=== PATIENT | female | born 1995 | race Caucasian/White ===

== ENCOUNTER 2017-10-03 06:39 | Inpatient (IN) ==
--- OUTSIDE RECORDS SUMMARY | 2017-10-03 05:04 | External Medical Summary | Referral Summary ---
:1995 Author Organization [facility] Address [address] [place] [address] [place] [address] Care Team Providers Name Role Phone Arnie Fernandez Primary Care Physician Encounter VC Date(s): 06/10/15 - 06/10/15 [facility] [place] [address]- Discharge Diagnosis: Epigastric pain Discharge Disposition: 01-Home or Self Care Attending Physician: Александр Solorio MD Admitting Physician: Александр Solorio MD Referring Physician: Arnie Fernandez DO Vital Signs Most recent to oldest [Reference Range]: 1 Temperature Tympanic [36.6-38.1 degC] 36.7 degC (06/10/15 2:45 PM) Peripheral Pulse Rate [60-100 bpm] 84 bpm (06/10/15 2:45 PM) Respiratory Rate [14-20 br/min] 16 br/min (06/10/15 2:45 PM) Blood Pressure [90-140/60-90 mmHg] 100/60 mmHg (06/10/15 2:45 PM) Problem List Condition Effective Dates Status Health Status Informant Heart defect(Confirmed)1 Active 1age 13 months ventricular septal defect repair. Allergies, Adverse Reactions, Alerts No Known Medication Allergies Medications ibuprofen 200 mg oral tablet 3 tabs, Oral, q6hr, as needed for pain, 0 Refill(s) Start Date: 08/04/14 Status: OrderedZoloft 100 mg oral tablet 200 mg 2 tabs, Oral, Daily, # 60 tabs, 1 Refill(s), Pharmacy: [id number], 2 tabs Oral Daily,x30 days Start Date: 10/16/15 Stop Date: 12/15/15 Status: Ordered Results No data available for this section Immunizations Vaccine Date Refusal Reason tetanus/diphth/pertuss (Tdap) adult/adol 06/19/09 human papillomavirus vaccine 02/16/11 human papillomavirus vaccine 02/15/10 human papillomavirus vaccine 06/19/09 varicella virus vaccine 06/19/09 Procedures Procedure Date Related Diagnosis Body Site ventricular septal defect repair1 1994 Tonsillectomy 1heart defect age 13 months. Social History Social History Type Response Smoking Status Never smoker Assessment and Plan Extracted from: Title: Office Visit Note Author: Александр Solorio MD Date: 06/10/15 Assessment/Plan Epigastric pain I've recommended Protonix 40 mg daily 2 weeks. Holden diet encouraged. If symptoms don't improve during that timeframe she should follow-up for further evaluation with Dr. augustin. Talked about considering evaluation of her gallbladder. I also mentioned to her that she had some premature contractions noted on her cardiac evaluation today. I think these are benign. She has no syncope or palpitations noted. If she develops any problems that way she should have further evaluation. Ordered: Office Visit Level 3 Est 55070 Orders: pantoprazole, 40 mg 1 tabs, Oral, Daily, # 30 tabs, 0 Refill(s), Pharmacy: [id number], 1 tabs Oral Daily
--- OUTSIDE RECORDS SUMMARY | 2017-10-03 05:04 | External Medical Summary | Continuity of Care Document ---
:1995 Author Organization [facility] Address [address] [place], [place] [id number] Phone Care Team Providers Name Role Phone Arnie Fernandez DO Unavailable Unavailable Allergies, Adverse Reactions, Alerts Substance Reaction Severity Status No Known Drug Allergies Unknown Active Medications Medication Instructions Dosage Effective Dates (start - Status Comments stop) ORAL TABLET - Active Problems Condition Effective Dates (start - stop) Clinical Status Encntr for suprvsn of normal first - preg, third trimester 32 weeks gestation of - Encntr for suprvsn of normal first - preg, second trimester 15 weeks gestation of - Fam hx of congen malform, deformations - and chromsoml abnlt Maternal care for excess growth, - second tri, unsp 19 weeks gestation of - Fam hx of congen malform, deformations - and chromsoml abnlt Low lying placenta NOS or w/out - hemorrhage, second trimester 19 weeks gestation of - Encntr screen for infections w sexl mode of transmiss Encntr screen for infections w sexl - mode of transmiss Encounter for screening for oth - infec/parastc diseases Encntr for suprvsn of normal first - preg, first trimester Encounter for screening of - mother 11 weeks gestation of - Other spec postprocedural states - Encntr for suprvsn of normal first - preg, second trimester 23 weeks gestation of - Fam hx of congen malform, deformations - and chromsoml abnlt Encntr for suprvsn of normal first - preg, second trimester 27 weeks gestation of - Encntr for suprvsn of normal first - preg, third trimester 34 weeks gestation of - Encntr for suprvsn of normal first - preg, third trimester 30 weeks gestation of - 23 weeks gestation of - Fam hx of congen malform, deformations - and chromsoml abnlt Other spec postprocedural states - Procedures Procedure Date OB Visit No Charge Results Test Name Date and Time Measure Units Reference Range Abnormal Flag Comments Unknown Advance Directives Directive Yes / No Effective Date File Name Unknown Encounters Encounter Practice Location Reason(s) Diagnoses Date Provider Care Team Description For Visit Members Camelia Hyde Encntr for Oct- Mcfadden Referring In Womens suprvsn of normal 2-201 Alycia. Provider: [facility] [place], first preg, third 7 700 Arnie PO Box weeks Medical [facility], [facility] 1522, gestation of [facility], [facility] , [facility], [address], [id number], [place], [facility] [place], [address]. tel:+ [phone] tel: [phone] [facility]. [id number] tel: [phone] Camelia Hyde Encntr for Sep-2 Mcfadden Referring In Womens suprvsn of normal 8-201 Alycia. Provider: [facility] [place], first preg, third 7 700 Arnie PO Box [email or web address] weeks [facility], 720 1522, gestation of [facility], [facility], [address], [id number], [place], [place], [address]. tel:[phone] tel: [phone] , . [id number] tel: [phone] Camelia Hyde Encntr for Sep-1 Mcfadden Referring In Womens suprvsn of normal 4-201 Alycia. Provider: Gabriella NICOLAS, first preg, third 7 700 Arnie PO Box [email or web address] weeks [facility], 720 1522, gestation of [facility], , [facility], [address], , [place], [address]. tel: tel:+ , [place]. [id number] tel:[phone] Camelia Hyde Encntr for Aug-2 Mcfadden Referring In Womens suprvsn of normal 4-201 Alycia. Provider: Gabriella NICOLAS, first preg, 7 700 Arnie PO Box second [facility], 720 1522, [email or web address] [facility], [facility] of , [facility], [address], , [place], [facility] [place], [address]. tel: tel: , [place]. [id number] tel:[phone] Camelia Hyde 23 weeks Aug-0 Mcfadden Referring In Womens Ultrasound gestation of 2-201 Alycia. Provider: Gabriella NICOLAS, pregnancyFam hx 7 700 Arnie PO Box of [facility], 720 1522, malform, [facility], deformations and , [facility], chromsoml [address], , abnltOther spec Barrett [place], [place], [address]. tel: states tel: , [place]. [id number] tel:[phone] Camelia Hyde Encntr for Philip-2 Mcfadden Referring In Womens suprvsn of normal 7-201 Alycia. Provider: Gabriella NICOLAS, first preg, 7 700 Arnie PO Box second [facility], 720 1522, [email or web address] weeks [facility] Radha, gestation of , [facility] [place], pregnancyFa hx [address], , of congen Barrett [place], mal[place], [place], [address]. tel: deformations and tel: chromsomclaren thumb region , [place]. [id number] tel:[phone] Camelia Hyde Low lying Remington-2 Mcfadden Referring In Womens placenta NOS or 9-201 Alycia. Provider: Gabriella NICOLAS, w/out hemorrhage, 7 700 Arnie PO Box second [facility], 720 1522, [email or web address] weeks [facility], gestation of , [facility], [address], , [place], [address]. tel: tel:+ , [place]. [id number] tel: [phone] Camelia Hyde Maternal care for Remington-2 Mcfadden Referring In Womens Ultrasound excess 9-201 Alycia. Provider: Gabriella NICOLAS, growth, second 7 700 Arnie PO Box tri, [email or web address] weeks [facility], 720 1522, gestation of [facility], pregnancyFa hx , [facility], of congen [address], , malform, [place], [place], [address]. tel: chromsoml abnlt tel: , [place]. [id number] tel: [phone] Camelia Hyde Encntr for Remington-0 Mcfadden Referring In Womens suprvsn of normal 2-201 Alycia. Provider: Gabriella NICOLAS, first preg, 7 700 Arnie PO Box second [facility], 720 1522, [email or web address] weeks [facility], gestation of , [facility], pregnancyFam hx [address], , of congen [place], [place], [place], [address]. tel: deformations and [phone] tel: chromsoml abnlt , [place]. [id number] tel: [phone] Camelia Hyde Encntr screen for May-0 Mcfadden Referring In Womens infections w sexl 5-201 Alycia. Provider: Gabriella NICOLAS, mode of 7 700 Arnie PO Box transmissEncounte [facility], 720 1522, r for screening [facility], for oth , [facility], infec/parastc [address], , diseasesEncntr [place], [place], [address]. tel: normal first tel: preg, first , [place]. [id number] trimesterEncounte tel: r for [phone] screening of [id number] weeks gestation of pregnancyOther spec postprocedural states [facility] Encntr screen for Manfred-0 [place] Referring In Womens infections w sexl 5201 Zoe. Provider: Gabriella NICOLAS, mode of transmiss 7 700 Arnie dELiAs [facility], 720 1522, [facility] Dr Radha, [facility], [address], [id number], [place], [facility] [place], [address]. tel: [phone] tel: , . [phone] tel: [phone] Camelia Hyde Aug-0 Danny Referring In Womens 8201 Audrey. Provider: Gabriella NICOLAS, 3 700 Arnie dELiAs [facility], 720 1522, [place] [address], [facility], [address], [id number], [place], [facility] [place], [address]. tel: [phone] tel: , . [id number] tel: [phone] Family History Family Member Diagnosis Age At Onset No family history of Thyroid Disorder No family history of Colon Cancer No family history of Stroke No family history of Breast Cancer No family history of Venous Thrombosis No family history of Uterine Cancer No family history of Hypertension No family history of Ovarian Cancer No family history of Lung Disease No family history of Osteoporosis No family history of Cardiovascular Disease No family history of Pulmonary Embolism No family history of Epilepsy No family history of Kidney Disease No family history of Diabetes Immunizations Vaccine Date Status Comments Influenza, injectable, completed Source: New Immunization Record quadrivalent, preservative free, 3 yrs or older Tdap completed Source: New Immunization Record Influenza, injectable, completed Source: Other Provider quadrivalent, preservative free, 3 yrs or older Payers Payer name Insurance type Covered republican ID Authorization(s) [facility] [place] [id number] [facility] [place] [id number] [facility] [place] [id number] Social History Type Description Quantity Date Captured Alcohol Use Details No Caffeine Use Details Unknown Tobacco Use Status Smoking Status Never smoker Vital Signs Date / Height Weight BMI Pulse Blood Temperature Respiratory Body Head BMI Time: Rate Pressure Rate Surface Circumference percentile Area 194.30 32.8 117/58 2017 lbs 3 mm[Hg] 10:10 kg/m AM eter (2) Chief Complaint And Reason For Visit Unknown Chief Complaint And Reason For Visit Reason For Referral Reason For Referral Unknown Plan Of Care Date Type Action Status Goal Tobacco cessation counseling completed Goal Lifestyle education regarding completed diet Goal Tobacco cessation counseling completed Goal Tobacco cessation counseling completed Appointment Ginger Arias BOOKED Future Order: Radiology Order Complete OB Ultrasound > 14 Ordered Weeks (54311) Future Order: Radiology Order Ultrasound, OB Limited ([id number]) Ordered Date Type Problem Goal Intervention Status Start Date Unknown. History Of Present Illness Encounter Date Complaint History Of Present Illness This patient has no known history of present illness Functional Status Encounter Date Functional Assessment Cognitive Assessment Unknown Medications Administered Medication Instructions Dosage Effective Dates (start - stop) Status Comments Drug Treatment Unknown Instructions Date Instruction Additional Information gestational glucose lab screening HIV and other routine tests environmental / work hazards anticipated course of care nutrition and weight gain counseling, special diet toxoplasmosis precautions (cats / raw meat) exercise indications for ultrasound travel tobacco (ask, advise, assess, assist and arrange) alcohol illicit / recreational drugs use of any medications (including supplements, vitamins, herbs, OTC drugs) smoking counseling domestic violence seat belt use genetic testing new ob handbook Zika virus assessment & precautions dentist, wt gain 20-25# risk factors identified by history Giving encouragement to exercise Related to Body mass index 30.0-30.9 Lifestyle education regarding diet Related to Body mass index 30.0-30.9
--- OUTSIDE RECORDS SUMMARY | 2017-10-03 05:04 | External Medical Summary | Referral Summary ---
:1995 Author Organization [facility] [place] [address] Care Team Providers Name Role Phone Arnie Fernandez Primary Care Physician Encounter Date(s): 07/01/15 - 07/01/15 [facility] [place] [address] [place] Discharge Diagnosis: Encounter for removal of sutures Discharge Diagnosis: JXG (juvenile xanthogranuloma) Discharge Disposition: 01-Home or Self Care Attending Physician: Arnie Fernandez DO Admitting Physician: Arnie Fernandez DO Vital Signs Most recent to oldest [Reference Range]: 1 Temperature Tympanic [36.6-38.1 degC] 36.4 degC *LOW* (07/01/15 4:01 PM) Peripheral Pulse Rate [60-100 bpm] 67 bpm (07/01/15 4:01 PM) Blood Pressure [90-140/60-90 mmHg] 114/48 mmHg (07/01/15 4:01 PM) Problem List Condition Effective Dates Status [...] Daily, # 60 tabs, 1 Refill(s), Pharmacy: [facility], 2 tabs Oral Daily,x30 days Start Date: [...] Extracted from: Title: Office Visit Note Author: Arnie Fernandez DO Date: 07/01/15 Assessment/Plan Encounter for removal of sutures 1. Sutures were removed without difficulty , pathology report reviewed with the patient. 2. No further excision needed at this time. Ordered: Office Visit No Charge JXG (juvenile xanthogranuloma) 1.As above. Ordered: Office Visit No Charge
--- OUTSIDE RECORDS SUMMARY | 2017-10-03 05:04 | External Medical Summary | Referral Summary ---
:1995 Author [facility] Address [address] [place] [address] [place] [address] Care Team Providers Name Role Phone Arnie Fernandez Primary Care Physician Encounter VC Date(s): 09/09/16 - 09/09/16 [facility] [place] [address] [place] Discharge Diagnosis: High risk sexual behavior Discharge Diagnosis: STD exposure Discharge Disposition: 01-Home or Self Care Attending Physician: Arnie Fernandez DO Admitting Physician: Arnie Fernandez DO Vital Signs Most recent to oldest [Reference Range]: 1 Temperature Tympanic [36.6-38.1 degC] 36.7 degC (09/09/16 8:32 AM) Peripheral Pulse Rate [60-100 bpm] 73 bpm (09/09/16 8:32 AM) Blood Pressure [90-140/60-90 mmHg] 119/89 mmHg (09/09/16 8:32 AM) Problem List Condition Effective Dates Status Health Status Informant Heart defect(Confirmed)1 Active 1age 13 months ventricular septal defect repair. Allergies, Adverse Reactions, Alerts No Known Medication Allergies Medications metroNIDAZOLE 500 mg oral tablet 500 mg 1 tabs, Oral, q8hr, X 7 days, # 21 tabs, 0 Refill(s), Pharmacy: [facility], 1 tabs Oral q8hr,x7 days Start Date: 09/09/16 Stop Date: 09/16/16 Status: Ordered Results Chemistry Most recent to oldest [Reference Range]: 1 Hep C Ab Negative (09/09/16 9:40 AM) HIV 1 and 2 Abs Negative (09/09/16 9:40 AM) Immunizations Vaccine Date Refusal Reason tetanus/diphth/pertuss (Tdap) adult/adol 06/19/09 human papillomavirus vaccine 02/16/11 human papillomavirus vaccine 02/15/10 human papillomavirus vaccine 06/19/09 varicella virus vaccine 06/19/09 Procedures Procedure Date Related Diagnosis Body Site Collection of venous blood by venipuncture 09/09/16 ventricular septal defect repair1 1994 Tonsillectomy 1heart defect age 13 months. Social History Social History Type Response Smoking Status Never smoker Assessment and Plan Extracted from: Title: Office Visit Note Author: Arnie Fernandez DO Date: 09/09/16 Assessment/Plan High risk sexual behavior 1. Repeat testing for chlamydia and gonorrhea was done today 2. Wet mount is pending 3. Sex education discussed in detail. Recommended using protection. 4. Recommended testing for HIV, hepatitis C and RPR. Ordered: Chlamydia/GC Nucleic Acid Screen Office Visit Level 4 Est 10436 RPR STD exposure 1. As above. Ordered: Chlamydia/GC Nucleic Acid Screen Office Visit Level 4 Est 40490 RPR Patient is up-to-date with Gardasil vaccination.
--- OUTSIDE RECORDS SUMMARY | 2017-10-03 05:04 | External Medical Summary | Referral Summary ---
:1995 Author Organization [facility] [place] [address] Care Team Providers Name Role Phone Arnie Fernandez Primary Care Physician Encounter VC Date(s): 06/19/15 - 06/19/15 [facility] [place] [address] [place] Discharge Diagnosis: Acute viral syndrome Discharge Diagnosis: Acute bronchitis Discharge Disposition: 01-Home or Self Care Attending Physician: Arnie Fernandez DO Admitting Physician: Arnie Fernandez DO Vital Signs Most recent to oldest [Reference Range]: 1 Temperature Tympanic [36.6-38.1 degC] 36.5 degC *LOW* (06/19/15 3:07 PM) Peripheral Pulse Rate [60-100 bpm] 64 bpm (06/19/15 3:07 PM) Blood Pressure [90-140/60-90 mmHg] 95/55 mmHg (06/19/15 3:07 PM) Problem List Condition Effective Dates Status [...] Daily, # 60 tabs, 1 Refill(s), [facility], 2 tabs Oral Daily,x30 days Start Date: [...] Visit Note Author: Arnie Fernandez DO Date: 06/19/15 Assessment/Plan Acute bronchitis 1. Patient advised that her symptoms continued to be consistent with a viral presentation. At most she has early bronchitis. 2. A course of antibiotic was sent out for dlxc-hyj-svu approach. Indication for starting the antibiotic was discussed in detail. Patient and her mother voiced understanding. 3. Follow up next week if symptoms do not improve . Ordered: amoxicillin, 875 mg 1 tabs, Oral, BID, X 10 days, # 20 tabs, 0 Refill(s), Pharmacy: [facility], 1 tabs Oral BID,x10 days Acute viral syndrome
--- OUTSIDE RECORDS SUMMARY | 2017-10-03 05:05 | External Medical Summary | Referral Summary ---
:1995 Author Organization [facility] [place] [address] Care Team Providers Name Role Phone Arnie Fernandez Primary Care Physician Encounter VC Date(s): 06/17/15 - 06/17/15 [facility] [place] [address] [place] Discharge Diagnosis: Abnormal skin growth Discharge Diagnosis: Acute viral syndrome Discharge Disposition: 01-Home or Self Care Attending Physician: Arnie Fernandez DO Admitting Physician: Arnie Fernandez DO Vital Signs Most recent to oldest [Reference Range]: 1 Temperature Tympanic [36.6-38.1 degC] 36.9 degC (06/17/15 4:06 PM) Peripheral Pulse Rate [60-100 bpm] 66 bpm (06/17/15 4:06 PM) Blood Pressure [90-140/60-90 mmHg] 111/56 mmHg (06/17/15 4:06 PM) Problem List Condition Effective Dates Status [...] Daily, # 60 tabs, 1 Refill(s), Pharmacy: [facility], 2 tabs Oral Daily,x30 days Start Date: [...] Visit Note Author: Arnie Fernandez DO Date: 06/17/15 Assessment/Plan Abnormal skin growth 1. Given this is an abnormal growth over a short period of time I recommended excision. Patient will schedule procedure at her convenience. Ordered: Office Visit Level 3 Est 12047 Acute viral syndrome 1. Her Hx and clinical findings are consistent with viral syndrome. 2. Continue with conservative management. If symptoms worsen then call or follow up for reevaluation. Ordered: Office Visit Level 3 Est 81762
--- OUTSIDE RECORDS SUMMARY | 2017-10-03 05:05 | External Medical Summary | Referral Summary ---
:1995 Author Organization [facility] [place] [address] Care Team Providers Name Role Phone Arnie Fernandez Primary Care Physician Encounter VC Date(s): 09/22/15 - 09/22/15 [facility] [place] [address] [place] Discharge Diagnosis: Anxiety and depression Discharge Disposition: 01-Home or Self Care Attending Physician: Arnie Fernandez DO Admitting Physician: Arnie Fernandez DO Vital Signs Most recent to oldest [Reference Range]: 1 Temperature Tympanic [36.6-38.1 degC] 36.8 degC (09/22/15 2:59 PM) Peripheral Pulse Rate [60-100 bpm] 70 bpm (09/22/15 2:59 PM) Blood Pressure [90-140/60-90 mmHg] 120/60 mmHg (09/22/15 2:59 PM) SpO2 99 % (09/22/15 2:59 PM) Problem List Condition Effective Dates Status Health Status Informant Heart defect(Confirmed)1 Active 1age 13 months ventricular septal defect repair. Allergies, Adverse Reactions, Alerts No Known Medication Allergies Medications ibuprofen 200 mg oral tablet 3 tabs, Oral, q6hr, as needed for pain, 0 Refill(s) Start Date: 08/04/14 Status: OrderedZoloft 100 mg oral tablet 100 mg 1 tabs, Oral, Daily, # 30 tabs, 1 Refill(s), Pharmacy: [facility], 1 tabs Oral Daily,x30 days Start Date: 09/22/15 Stop Date: 11/21/15 Status: Ordered Results No data available for [...] Visit Note Author: Arnie Fernandez DO Date: 09/22/15 Assessment/Plan Anxiety and depression Pathophysiology of this presentation, and differential diagnosis, discussed in detail with the patient. All questions were answered. 1. She was restarted on Zoloft 100 mg daily. 2. Follow-up in a month for reevaluation. 3. Over 25 minutes was spent oxgd-[id number]-[id number] with this patient, greater than 50 percent of the time was spent with counseling regarding her depression. Ordered: sertraline, 100 mg 1 tabs, Oral, Daily, # 30 tabs, 1 Refill(s), Pharmacy: [facility], 1 tabs Oral Daily,x30 days Office Visit Level 4 Est 71096
--- OUTSIDE RECORDS SUMMARY | 2017-10-03 05:05 | External Medical Summary | Referral Summary ---
:1994 Author Organization [facility] Address [address] [place] [address] SHANNON Hawkins [address] Care Team Providers Name Role Phone Arnie Fernandez Primary Care Physician Encounter VC Date(s): 01/21/16 - 01/21/16 [facility] [place] [phone] [place] Discharge Diagnosis: Strep pharyngitis Discharge Disposition: 01-Home or Self Care Attending Physician: Arnie Fernandez DO Admitting Physician: Arnie Fernandez DO Vital Signs Most recent to oldest [Reference Range]: 1 Temperature Tympanic [36.6-38.1 degC] 37.2 degC (01/21/16 2:01 PM) Peripheral Pulse Rate [60-100 bpm] 67 bpm (01/21/16 2:01 PM) Blood Pressure [90-140/60-90 mmHg] 120/60 mmHg (01/21/16 2:01 PM) SpO2 98 % (01/21/16 2:01 PM) Problem List Condition Effective Dates Status Health Status Informant Heart defect(Confirmed)1 Active 1age 13 months ventricular septal defect repair. Allergies, Adverse Reactions, Alerts No Known Medication Allergies Medications ibuprofen 200 mg oral tablet 3 tabs, Oral, q6hr, as needed for pain, 0 Refill(s) Start Date: 08/04/14 Status: OrderedZithromax Z-Thaddeus 250 mg oral tablet 1 packets, Oral, Daily, as directed on package labeling, X 5 days, # 6 tabs, 0 Refill(s), Pharmacy: [facility] [id number], 1 packets Oral Daily,x5 days,Instr: as directed on package labeling Start Date: 01/21/16 Stop Date: 01/26/16 Status: OrderedZoloft 100 mg oral tablet 200 mg 2 tabs, Oral, Daily, # 60 tabs, 1 Refill(s), Pharmacy: [facility] [id number], 2 tabs Oral Daily,x30 days Start Date: [...] Visit Note Author: Arnie Fernandez DO Date: 01/21/16 Assessment/Plan Strep pharyngitis, Streptococcal pharyngitis 1. Given her positive exposure to strep pharyngitis on her clinical presentation, this is likely strep pharyngitis. 2. Zithromax taken as directed for 5 days. 3. Change toothbrush in 2 days to avoid reinfection. 4. Follow-up if worsening presentation. Ordered: Office Visit Level 3 Est 45623
--- OUTSIDE RECORDS SUMMARY | 2017-10-03 05:05 | External Medical Summary | Continuity of Care Document ---
:1994 Author Organization [facility] Address [address] [place], [place] [id number] Phone Care Team Providers Name Role Phone [...] third trimester 30 weeks gestation of - Encntr for suprvsn of normal first - preg, third trimester 37 weeks gestation of - Encntr for suprvsn of normal first - preg, third trimester 32 weeks gestation of - Encntr for suprvsn of normal first - preg, third trimester 36 weeks gestation of - 23 weeks gestation of - Fam hx of congen malform, deformations - and chromsoml abnlt Other spec postprocedural states - Procedures Procedure Date Immuniz admnin, 1 vac, sngl/combo 19 Yrs + Flu Vaccine - Quadrivalent OB Visit No Charge Results Test Name Date and Time Measure Units Reference Range Abnormal Flag Comments Unknown Advance Directives Directive Yes / No Effective Date File Name Unknown Encounters Encounter Practice Location Reason(s) Diagnoses Date Provider Care Team Description For Visit Members Camelia Moore for Sep-0 Mcfadden Referring In Womens suprvsn of normal 2-201 Alycia. Provider: Gabriella NICOLAS, first preg, third 7 700 Arnie PO [address] [id number] weeks Medical Teck, 720 1522, gestation of [facility], [facility] [address] [facility], [address], [id number], Barrett Hyde, [facility] [[email or web address] [place], [address]. tel:[phone] tel: [phone] , . [id number] tel: [phone] Camelia Moore for Aug-2 Mcfadden Referring In Womens suprvsn of normal 6-201 Alycia. Provider: Gabriella NICOLAS, first preg, third 7 700 Arnie PO Box [id number] weeks Medical Teck, 720 1522, gestation of [facility], , [facility], [address], [id number], [place], [address]. tel:[phone] tel: , [place]. [id number] tel: [phone] Camelia Hyde Encntr for Oct-1 Mcfadden Referring In Womens suprvsn of normal 2-201 Alycia. Provider: Gabriella NICOLAS, first preg, third 7 700 Arnie PO Box [id number] weeks Medical Teck, 720 1522, gestation of [facility], , [facility], [address], [id number], [place], [address]. tel:[phone] tel: , [place]. [id number] tel: [phone] Camelia Hyde Encntr for Sep-2 Mcfadden Referring In Womens suprvsn of normal 8-201 Alycia. Provider: Gabriella NICOLAS, first preg, third 7 700 Arnie PO Box [email or web address] weeks Medical Teck, 720 1522, gestation of [facility], , [facility], [address], , [place], [address]. tel:[phone] tel: , [place]. [id number] tel: [phone] Camelia Hyde Encntr for Sep-1 Mcfadden Referring In Womens suprvsn of normal 4-201 Alycia. Provider: Gabriella NICOLAS, first preg, third 7 700 Arnie PO Box [email or web address] weeks Medical Teck, 720 1522, gestation of [facility], , [facility], [address], [id number], [place], [facility] [[email or web address] [place], [address]. tel:[phone] tel: , [place]. [id number] tel: [phone] Camelia Hyde Encntr for Aug-2 Mcfadden Referring In Womens suprvsn of normal 4-201 Alycia. Provider: Gabriella NICOLAS, first preg, 7 700 Arnie PO Box second [facility], 720 1522, [email or web address] weeks [facility], gestation of , [facility], [address], , [place], [place], [address]. tel:[phone] tel:+ , [place]. [id number] tel:[phone] Camelia Hyde 23 weeks Aug-0 Mcfadden Referring In Womens Ultrasound gestation of 2-201 Alycia. Provider: Gabriella NICOLAS, pregnancyFam hx 7 700 Arnie PO Box of [facility], 720 1522, malform, [facility], deformations and , [facility], chromsoml [address], , abnltOther spec Hyde, [place], [place], [address]. tel:+ states [phone] tel:+ , [place]. [id number] tel: [phone] Camelia Hyde Encntr for Philip-2 Mcfadden Referring In Womens suprvsn of normal 7-201 Alycia. Provider: Gabriella NICOLAS, first preg, 7 700 Arnie PO Box second [facility], 720 1522, [id number] weeks [facility], gestation of , [facility], pregnancyFam hx [address], , of [facility] [place], [place], [address]. tel:+ deformations and [phone] tel: [facility] , [place]. [id number] tel:[phone] Camelia Hyde Low lying Remington-2 Mcfadden Referring In Womens placenta NOS or 9-201 Alycia. Provider: Gabriella NICOLAS, w/out hemorrhage, 7 700 Arnie PO Box second [facility], 720 1522, weeks [facility], gestation of , [facility], [address], , [place], [address]. tel:[phone] tel:+ , [place]. [id number] tel: [phone] Camelia Hyde Maternal care for Remington-2 Mcfadden Referring In Womens Ultrasound excess 9-201 Alycia. Provider: Gabriella NICOLAS, growth, second 7 700 Arnie PO Box tri, unsp19 weeks Medical Teck, 720 1522, gestation of [facility], pregnancyFam hx , [facility], of congen [address], , malform, [place], [place], [address]. tel: chromsoml abnlt tel: , [place]. [id number] tel: [phone] Camelia Hyde Encntr for Remington-0 Mcfadden Referring In Womens suprvsn of normal 2-201 Alycia. Provider: Gabriella NICOLAS, first preg, 7 700 Arnie PO Box second [facility], 720 1522, [id number] weeks [facility], gestation of , [facility], pregnancyFa hx [address], , of congen Barrett [place], [place], [address]. tel: deformations and [facility]: [facility] [place]. [id number] tel:[phone] Camelia Hyde Encntr screen for May-0 Mcfadden Referring In Womens infections w sexl 5-201 Alycia. Provider: Gabriella NICOLAS, mode of 7 700 Arnie Box transmissEncounte [facility] Teck, 720 1522, r for screening [facility], for oth , [facility], infec/parastc [address], , diseasesEncntr Barrett Orick, [place], [address]. tel: normal first tel: preg, first , [place]. [id number] trimesterEncounte tel: r for [phone] screening of [id number] weeks gestation of pregnancyOther spec postprocedural states Camelia Hyde Encntr screen for Manfred-0 Trujillo Referring In Womens infections w sexl 5-201 Zoe. Provider: Gabriella NICOLAS, mode of transmiss 7 700 Arnie PO Box Medical [facility], 720 1522, [facility] Radha, , [facility], [address], , [place], [address]. tel: tel: , [place]. [id number] tel: [phone] Camelia Hyde Danny Referring In Womens 8-201 Audrey. Provider: [facility], 3 700 Arnie [facility], 454 [address], [place] [address], [facility], [address], [id number], [place], [facility] [[email or web address]], [place], [address]. tel: [phone] tel: [phone] , [place]. [id number] tel: [phone] Family History Family Member Diagnosis Age At [...] older Payers Payer name Insurance type Covered alliance party ID Authorization(s) [facility] [id number] [facility] [id number] [facility] [id number] Social History Type Description Quantity Date Captured Alcohol Use Details No Caffeine Use Details Unknown Tobacco Use Status Smoking Status Never smoker Vital Signs Date / Height Weight BMI Pulse Blood Temperature Respiratory Body Head BMI Time: Rate Pressure Rate Surface Circumference percentile Area 194.50 32.8 lbs 7 mm[Hg] 11:45 kg/m AM eter (2) Chief Complaint And [...] Complete OB Ultrasound > 14 Ordered Weeks (31376) Future Order: Radiology Order Ultrasound, OB Limited ([id number]) Ordered Date Type Problem Goal Intervention Status Start Date Unknown. History Of Present Illness Encounter Date Complaint History Of Present Illness This patient has no known history of present illness Functional Status Encounter Date Functional Assessment Cognitive Assessment Unknown Medications Administered Medication Instructions Dosage Effective Dates (start - stop) Status Comments Drug Treatment Unknown Instructions Date Instruction Additional Information labor signs group B strep screening gestational glucose lab screening HIV and other [...]
--- OUTSIDE RECORDS SUMMARY | 2017-10-03 05:05 | External Medical Summary | Continuity of Care Document ---
:1994 Author Organization [facility] Address [address] [place], [place] [id number] Phone Care Team Providers Name Role Phone Tecvane AHMADI Arnie Unavailable Unavailable Allergies, Adverse Reactions, Alerts Substance Reaction Severity Status No Known Drug Allergies Unknown Active Medications Medication Instructions Dosage Effective Dates (start - Status Comments stop) ORAL TABLET - Active Problems Condition Effective Dates (start - stop) Clinical Status 23 weeks gestation of - Fam hx of congen malform, deformations - and chromsoml abnlt Other spec postprocedural states - Encntr for [...] weeks gestation of - Fam hx of [facility] malform, deformations - and chromsoml abnlt Procedures Procedure Date Ultrasnd exam, preg uterus, limited Doppler color flow mapping Echo exam of heart Results Test Name Date and Time Measure Units Reference Range Abnormal Flag Comments Unknown Advance Directives Directive Yes / No Effective Date File Name Unknown Encounters Encounter Practice Location Reason(s) Diagnoses Date Provider Care Team Description For Visit Members Camelia Hyde 23 weeks Mcfadden Referring In Womens Ultrasound gestation of 2-201 Alycia. Provider: Gabriella NICOLAS, pregnancyFam hx 7 700 Arnie PO Box of [facility] Teck, 720 1522, malform, [facility], deformations and [facility], chromsoml [address], , abnltOther spec Barrett Hyde, [place], [address]. tel:+ states [phone] tel:[phone] , [place]. [id number] tel: [phone] Camelia Hyde Encntr for May- Mcfadden Referring In Womens suprvsn of normal 7-201 Alycia. Provider: Gabriella NICOLAS, first preg, 7 700 Arnie PO Box second [facility], 720 1522, [id number] weeks [facility], gestation of Dr [facility], pregnancyFam hx [address], , of [place], [place], [place], [address]. tel: deformations and [phone] tel: chromsoml [facility] , [place]. [id number] tel: [phone] Camelia Hyde Low lying Remington-2 Mcfadden Referring In Womens placenta NOS or 9-201 Alycia. Provider: Gabriella NICOLAS, w/out hemorrhage, 7 700 Arnie PO Box second [facility], 720 1522, [id number] weeks [facility], gestation of Dr [facility], [address], , [place], [address]. tel:[phone] tel: , [place]. [id number] tel: [phone] Camelia Hyde Maternal care for Remington-2 Mcfadden Referring In Womens Ultrasound excess 9-201 Alycia. Provider: Gabriella NICOLAS, growth, second 7 700 Arnie PO Box tri, unsp19 weeks Medical Teck, 720 1522, gestation of [facility], pregnancyFam hx , [facility], of congen [address], , malform, Barrett Hyde, [place], [address]. tel: chromsoml abnlt [phone] tel: , US. [id number] tel: [phone] Camelia Hyde Encntr for Remington-0 Mcfadden Referring In Womens suprvsn of normal 2-201 Alycia. Provider: Gabriella NICOLAS, first preg, 7 700 Arnie PO Box second [facility], 720 1522, [email or web address] weeks [facility], gestation of , [facility], pregnancyFa hx [address], , of congen Barrett [place], [place], [place], [address]. tel: deformations and [phone] tel: chromsoml [facility] , [place]. [id number] tel: [phone] Camelia Lopezntr screen for May-0 Mcfadden Referring In Womens infections w sexl 5-201 Alycia. Provider: Gabriella NICOLAS, mode of 7 700 Arnie PO Box transmissEncounte Medical Teck, 720 1522, r for screening [facility], for oth , [facility], infec/parastc [address], , diseasesEncntr Barrett [place], [place], [address]. tel: normal first [phone] tel: preg, first , . [id number] trimesterEncounte tel: r for [phone] screening of [id number] weeks gestation of pregnancyOther spec postprocedural states Associates Barrett Encntr screen for Manfred-0 Truj[place] Referring In Womens infections w sexl 5-201 Zoe. Provider: Gabriella NICOLAS, mode of transmiss 7 700 Arnie PO Box Medical Teck, 720 1522, [place] [address], [facility], [address], [id number], [place], [address]. tel: [phone] tel:[phone] , . [id number] tel: [phone] Camelia Hyde Delgado Referring In Womens 8-201 Audrey. Provider: [facility], [facility], 3 700 Arnie MeetBall [facility] Te[facility], 720 1522, [facility] Dr Radha, [facility], [address], [id number], Barrett Hyde, [place], [address]. tel: [phone] tel: [phone] , . [id number] tel: [phone] Family History Family Member Diagnosis Age At [...] Immunizations Vaccine Date Status Comments Influenza, injectable, quadrivalent, completed Source: Other Provider preservative free, 3 yrs or older Payers Payer name Insurance type Covered alliance party ID Authorization(s) [place] [id number] Social History Type Description Quantity Date Captured Alcohol Use Details No Caffeine Use Details Unknown Tobacco Use Status Smoking Status Never smoker Vital Signs Date / Height Weight BMI Pulse Blood Temperature Respiratory Body Head BMI Time: Rate Pressure Rate Surface Circumference percentile Area Unknown Chief Complaint And Reason For Visit Unknown Chief Complaint And Reason For Visit Reason For Referral Reason For Referral Unknown Plan Of Care Date Type Action Status Goal Tobacco cessation counseling completed Goal Lifestyle education regarding completed diet Goal Tobacco cessation counseling completed Goal Tobacco cessation counseling completed Appointment Ginger Arias BOOKED Future Order: Radiology Order Ultrasound, OB Limited ([id number]) Ordered Future Order: Radiology Order Complete OB Ultrasound > 14 Ordered Weeks ([id number]) Date Type Problem Goal Intervention Status Start Date Unknown. History Of Present Illness Encounter Date Complaint History Of Present Illness This patient has no known history of present illness Functional Status Encounter Date Functional Assessment Cognitive Assessment Unknown Medications Administered Medication Instructions Dosage Effective Dates (start - stop) Status Comments Drug Treatment Unknown Instructions Date Instruction Additional Information HIV and other routine tests environmental / [...]
--- OUTSIDE RECORDS SUMMARY | 2017-10-03 05:05 | External Medical Summary | Continuity of Care Document ---
:1994 Author Organization [facility] Address [address] [place], [place] [phone] Phone Care Team Providers Name Role Phone TecArnie cifuentes DO Unavailable Unavailable Allergies, Adverse Reactions, Alerts Substance Reaction Severity Status No Known Drug Allergies Unknown Active Medications Medication Instructions Dosage Effective Dates (start - Status Comments stop) ORAL TABLET - Active Problems Condition Effective Dates (start - stop) Clinical Status Low lying placenta NOS or w/out - hemorrhage, second trimester 19 weeks gestation of - Fam hx of congen malform, deformations - and chromsoml abnlt Encntr for suprvsn of normal first - preg, second trimester 15 weeks gestation of - Maternal care for excess growth, - second tri, unsp 19 weeks gestation of - Fam hx of congen malform, deformations - and chromsoml abnlt Encntr screen for infections w sexl mode of transmiss Encntr screen for infections w sexl - mode of transmiss Encounter for screening for oth - infec/parastc diseases Encntr for suprvsn of normal first - preg, first trimester Encounter for screening of - mother 11 weeks gestation of - Other spec postprocedural states - Procedures Procedure Date OB Visit No Charge Results Test Name Date and Time Measure Units Reference Range Abnormal Flag Comments Unknown Advance Directives Directive Yes / No Effective Date File Name Unknown Encounters Encounter Practice Location Reason(s) Diagnoses Date Provider Care Team Description For Visit Members Camelia Hyde Low lying Remington-2 Mcfadden Referring In Womens placenta NOS or 9- Alycia. Provider: Gabriella NICOLAS, w/out hemorrhage, 7 700 Arnie PO Box second [facility], 720 1522, [id number] weeks [facility], gestation of , [facility], [address], , [place], [address]. tel:[phone] tel:+ , [place]. [id number] tel: [phone] Camelia Hyde Maternal care for Remington-2 Mcfadden Referring In Womens Ultrasound excess - Alycia. Provider: Gabriella NICOLAS, growth, second 7 700 Arnie PO Box tri, [id number] weeks Medical Teck, 720 1522, gestation of [facility], pregnancyFam hx , [facility], of congen [address], , malform, [place], [place], [address]. tel: chromsoml abnlt [phone] tel: , [place]. [id number] tel: [phone] Camelia Hyde Fam hx of congen Remington-0 Mcfadden Referring In Womens malform, 2-201 Alycia. Provider: Gabriella NICOLAS, deformations and 7 700 Arnie PO Box chromsoml [facility], 720 1522, abnltEncntr for [facility], suprvsn of normal , [facility], first preg, [address], [address], , second Barrett Hyde, [id number] [place], [address]. tel: gestation of [phone] tel: , [place]. [id number] tel: [phone] Camelia Hyde Encntr screen for May-0 Mcfadden Referring In Womens infections w sexl 5-201 Alycia. Provider: Gabriella NICOLAS, mode of 7 700 Arnie PO Box transmissEncounte Medical Teck, 720 1522, r for screening [facility], for oth , [facility], infec/parastc [address], [address], , diseasesEncntr Barrett [place], [place], [address]. tel: normal first [phone] tel: preg, first , . [id number] trimesterEncounte tel: r for [phone] screening of [id number] weeks gestation of pregnancyOther spec postprocedural states Associates Barrett Encntr screen for Manfred-0 [place] Referring In Womens infections w sexl 5-201 Zoe. Provider: Gabriella NICOLAS, mode of transmiss 7 700 Arnie readfy Teck, 720 1522, [facility] Dr Radha, [facility], [address], [id number], [place] [facility] [place], [address]. tel:[phone] tel: , . [id number] tel: [phone] Camelia Hyde Aug-0 Delgado Referring In Womens 8-201 Audrey. Provider: Gabriella NICOLAS, 3 700 Arnie [employer], 720 1522, [place] [address], [facility], [address], [id number], [place], [address]. tel:[phone] tel: , . [id number] tel: [phone] Family History Family Member Diagnosis Age At [...] name Insurance type Covered republican ID Authorization(s) MILO KENNEDY [id number] Social History Type Description Quantity Date Captured Alcohol Use Details No Caffeine Use Details Unknown 1 cup per day Tobacco Use Status Never smoked tobacco Smoking Status Never smoker Vital Signs Date / Height Weight BMI Pulse Blood Temperature Respiratory Body Head BMI Time: Rate Pressure Rate Surface Circumference percentile Area 4 11:40 kg/m AM eter (2) 180.60 30.5 108/59 2017 lbs 2 mm[Hg] 11:49 kg/m AM eter (2) Chief Complaint And [...] Complete OB Ultrasound > 14 Ordered Weeks (17240) Date Type Problem Goal Intervention Status Start [...]
--- OUTSIDE RECORDS SUMMARY | 2017-10-03 05:05 | External Medical Summary | Continuity of Care Document ---
:1995 Author Organization [facility] Address [address] [place], [place] [id number] Phone Care Team Providers Name Role Phone [...] third trimester 36 weeks gestation of - Encntr for suprvsn [...] of normal first - preg, third trimester 38 weeks gestation of - Encntr for suprvsn of normal first - preg, third trimester 30 weeks gestation of - Encntr for suprvsn of normal first - preg, third trimester 37 weeks gestation of - Encntr for suprvsn of normal first - preg, third trimester 39 weeks gestation of - Encntr for suprvsn of normal first - preg, third trimester 32 weeks gestation of - 23 weeks gestation of - Fam hx of congen malform, deformations - and chromsoml abnlt Other spec postprocedural states - Procedures Procedure Date OB Visit No Charge Cult, pathgnc orgnsm, screen Results Test Name Date and Time Measure Units Reference Range Abnormal Flag Comments Panel Description: STREPTOCOCCUS, GROUP B CULTURE STREPTOCOCCUS, GROUP SEE NOTE STREPTOCOCCUS, GROUP B CULTURE B CULTURE 11:47:00 MICRO NUMBER: [id number] TEST STATUS: FINAL SPECIMEN SOURCE: VAGINAL/ANORECTAL SPECIMEN QUALITY: ADEQUATE RESULT: No group B Streptococcus isolatedREPORT COMMENT:FASTING:UNKNOWNTest performed at [facility] [id number] [place] AGUILAR [id number]: CHRIS WAKEFIELD DO,MPH Advance Directives Directive Yes / No Effective Date File Name Unknown Encounters Encounter Practice Location Reason(s) Diagnoses Date Provider Care Team Description For Visit Members [facility] [place] for Mcfadden Referring In Womens suprvsn of normal 6-201 Alycia. Provider: Gabriella NICOLAS, first preg, third 7 700 Arnie PO Box [id number] weeks Medical [facility], 720 1522, gestation of [facility], , [facility], [address], , [place], [place], [address]. tel:[phone] tel: , [place]. [id number] tel: [phone] Camelia Hyde Encntr for Nov-1 Mcfadden Referring In Womens suprvsn of normal 0-201 Alycia. Provider: Gabriella NICOLAS, first preg, third 7 700 Arnie PO Box [email or web address] weeks [facility], 720 1522, gestation of [facility], , [facility], [address], , [place], [place], [address]. tel:[phone] tel: , [place]. [id number] tel: [phone] Camelia Hyde Encntr for Nov-0 Mcfadden Referring In Womens suprvsn of normal 2-201 Alycia. Provider: Gabriella NICOLAS, first preg, third 7 700 Arnie PO Box [id number] weeks [facility], 720 1522, gestation of [facility], , [facility], [address], , [place], [place], [address]. tel:[phone] tel: , [place]. [id number] tel: [phone] Camelia [place] Encntr for Oct-2 Mcfadden Referring In Womens suprvsn of normal 6-201 Alycia. Provider: Gabriella NICOLAS, first preg, third 7 700 Arnie PO Box [id number] weeks Medical [facility], 720 1522, gestation of [facility], , [facility], [address], , [place], [place], [address]. tel:[phone] tel: , [place]. [id number] tel: [phone] Camelia [place] Encntr for Oct-1 Mcfadden Referring In Womens suprvsn of normal 2-201 Alycia. Provider: Gabriella NICOLAS, first preg, third 7 700 Arnie PO Box [id number] weeks Medical [facility], 720 1522, gestation of [facility], , [facility], [address], , [place], [place], [address]. tel:[phone] tel: , [place]. [id number] tel: [phone] Camelia [place] Encntr for Sep-2 Mcfadden Referring In Womens suprvsn of normal 8-201 Alycia. Provider: Gabriella NICOLAS, first preg, third 7 700 Arnie PO Box [id number] weeks Medical [facility], 720 1522, gestation of [facility], , [facility], [address], , [place], [place], [address]. tel:[phone] tel: , [place]. [id number] tel: [phone] Camelia [place] Encntr for Sep-1 Mcfadden Referring In Womens suprvsn of normal 4-201 Alycia. Provider: Gabriella NICOLAS, first preg, third 7 700 Arnie PO Box [id number] weeks Medical [facility], 720 1522, gestation of [facility], , [facility], [address], , [place], [place], [address]. tel:[phone] tel: , [place]. [id number] tel: [phone] Camelia [place] Encntr for Aug-2 Mcfadden Referring In Womens suprvsn of normal 4-201 Alycia. Provider: Gabriella NICOLAS, first preg, 7 700 Arnie PO Box second [facility], 720 1522, [id number] weeks [facility], gestation of Dr [facility], [address], , [place], [place], [address]. tel:[phone] tel: , [place]. [id number] tel: [phone] Camelia Hyde 23 weeks Aug-0 Mcfadden Referring In Womens Ultrasound gestation of 2-201 Alycia. Provider: Gabriella NICOLAS, pregnancyFam hx 7 700 Arnie PO Box of [facility], 720 1522, malform, [facility], deformations and , [facility] [place], chromsoml [address], , abnltOther spec [place], [place], [address]. tel: states tel: , [place]. [phone] tel: [phone] Camelia [place] Encntr for Philip-2 Mcfadden Referring In Womens suprvsn of normal 7-201 Alycia. Provider: Gabriella NICOLAS, first preg, 7 700 Arnie PO Box second [facility], 720 1522, [id number] weeks [facility], gestation of , [facility], pregnancyFam hx [address], , of congen [place], [place], [place], [address]. tel: deformations and tel: [facility] , [place]. [id number] tel: [phone] Camelia Hyde Low lying Remington-2 Mcfadden Referring In Womens placenta NOS or 9-201 Alycia. Provider: Gabriella NICOLAS, w/out hemorrhage, 7 700 Arnie PO Box second [facility], 720 1522, [id number] weeks [facility], gestation of , [facility], [address], , [place], [place], [address]. tel:[phone] tel: , [place]. [id number] tel: [phone] Camelia [place] Maternal care for Remington-2 Mcfadden Referring In Womens Ultrasound excess 9-201 Alycia. Provider: Gabriella NICOLAS, growth, second 7 700 Arnie PO Box tri, [id number] weeks [facility], 720 1522, gestation of [facility], pregnancyFam hx , [facility], of congen [address], , malform, [place], [place], [address]. tel: chromsoml abnlt [phone] tel: , [place]. [id number] tel: [phone] Camelia Hyde Encntr for Remington-0 Mcfadden Referring In Womens suprvsn of normal 2-201 Alycia. Provider: Gabriella NICOLAS, first preg, 7 700 Arnie Daron second [facility], 720 1522, [id number] [facility], [facility] of , [facility], pregnancyFam hx [address], , of congen [place], [place], [place], [address]. tel: deformations and tel: chromsoml [facility] , [place]. [id number] tel: [phone] Associates Barrett Hernandezr screen for May-0 Mcfadden Referring In Womens infections w sexl 5-201 Alycia. Provider: Gabriella NICOLAS, mode of 7 700 Arnie Box transmissEncounte Medical [facility], 720 1522, r for screening [facility], for oth , [facility], infec/parastc [address], [address], , diseasesEncntr [place], [place], [address]. tel: normal first tel: preg, first , [place]. [id number] trimesterEncounte tel: r for [phone] screening of weeks gestation of pregnancyOther spec postprocedural states Associates Barrett Lopezntr screen for Manfred-0 Trujillo Referring In Womens infections w sexl Zoe. Provider: Gabriella NICOLAS, mode of transmiss 7 700 Arnie Box [facility], 720 1522, [place] [address], [facility], [address], , [place], [address]. tel: tel: , [place]. [id number] tel: [phone] Camelia [place] Aug-0 Delgado Referring In Womens 8-201 Audrey. Provider: Gabriella NICOLAS, 3 700 Arnie [place], 720 1522, [place], [facility], [address], , [place], [place], [address]. tel: tel: , [place]. [id number] tel:[phone] Family History Family Member Diagnosis Age At [...] name Insurance type Covered republican ID Authorization(s) [facility] [id number] [facility] [id number] [facility] [id number] Social History Type Description Quantity Date Captured Alcohol Use Details No Caffeine Use Details Unknown Tobacco Use Status Smoking Status Never smoker Vital Signs Date / Height Weight BMI Pulse Blood Temperature Respiratory Body Head BMI Time: Rate Pressure Rate Surface Circumference percentile Area 198.00 33.4 /59 lbs 6 mm[Hg] 10:58 kg/m AM eter (2) Chief Complaint And [...] Complete OB Ultrasound > 14 Ordered Weeks (97411) Future Order: Radiology Order Ultrasound, OB Limited ([id number]) Ordered Date Type Problem Goal Intervention Status [...]
--- OUTSIDE RECORDS SUMMARY | 2017-10-03 05:05 | External Medical Summary | Referral Summary ---
:1994 Author Organization [facility] Address [address] [place] [address] [place] [address] Care Team Providers Name Role Phone Arnie Fernandez Primary Care Physician Encounter VC Date(s): 06/26/15 - 06/26/15 [facility] [place] [address] [place] Discharge Diagnosis: Dermatofibroma of face Discharge Disposition: 01-Home or Self Care Attending Physician: Arnie Fernandez DO Admitting Physician: Arnie Fernandez DO Vital Signs Most recent to oldest [Reference Range]: 1 Temperature Tympanic [36.6-38.1 degC] 36.8 degC (06/26/15 2:45 PM) Peripheral Pulse Rate [60-100 bpm] 69 bpm (06/26/15 2:45 PM) Blood Pressure [90-140/60-90 mmHg] 118/58 mmHg (06/26/15 2:45 PM) Problem List Condition Effective Dates [...] Daily, # 60 tabs, 1 Refill(s), Pharmacy: [id number], 2 tabs Oral Daily,x30 days Start Date: 10/16/15 Stop Date: 12/15/15 Status: Ordered Results No data available for this section Immunizations Vaccine Date Refusal Reason tetanus/diphth/pertuss (Tdap) adult/adol 06/19/09 human papillomavirus vaccine 02/16/11 human papillomavirus vaccine 02/15/10 human papillomavirus vaccine 06/19/09 varicella virus vaccine 06/19/09 Procedures Procedure Date Related Diagnosis Body Site Excision, other benign lesion including margins, 06/26/15 except skin tag (unless listed elsewhere), face, ears, eyelids, nose, lips, mucous membrane; excised diameter 0.6 to 1.0 cm ventricular septal defect repair1 1994 Tonsillectomy 1heart defect age 13 months. Social History Social History Type Response Smoking Status Never smoker Assessment and Plan Extracted from: Title: Facial lesion excision Author: Arnie Fernandez DO Date: 06/26/15 Assessment/Plan Dermatofibroma of face Pathophysiology of this presentation, and differential diagnosis, discussed in detail with the patient and her and her mother was present. All questions were answered. Since this has become bothersome to patient I recommended excision to which they agreed. Procedure: Dermatofibroma excision Location: Right side of chin Indication: Acute growth with tenderness Medication: One percent lidocaine with epinephrine Pathology: A sample sent to pathology for review Description: Following written informed consent, the patient was laid in the supine position with the head turned towards the left. The area for excision was cleansed with alcohol followed by Betadine. Sterile field was created. Local anesthesia was achieved using one percent lidocaine with epinephrine. Using a 6 mm punch biopsy, the lesion was removed in its entirety with full skin thickness. Using 5-0 Prolene the margins were approximated, closure margins were 1 cm in length. Hemostasis was assured, dry dressing was applied and wound care instructions provided. Follow-up in 5-7 days for suture removal. Ordered: Exc Rodriguez Les Face Ear Nose 0.6-1.0cm [id number]
--- OUTSIDE RECORDS SUMMARY | 2017-10-03 05:05 | External Medical Summary | Referral Summary ---
:1994 Author Organization [facility] Address [address] [place] [address] [place] [address] Care Team Providers Name Role Phone Arnie Fernandez Primary Care Physician Encounter VC Date(s): 10/16/15 - 10/16/15 [facility] [place] [address] [place] Discharge Diagnosis: Major depression Discharge Disposition: 01-Home or Self Care Attending Physician: Arnie Fernandez DO Admitting Physician: Arnie Fernandez DO Vital Signs Most recent to oldest [Reference Range]: 1 Temperature Tympanic [36.6-38.1 degC] 36.9 degC (10/16/15 4:51 PM) Peripheral Pulse Rate [60-100 bpm] 89 bpm (10/16/15 4:51 PM) Respiratory Rate [14-20 br/min] 17 br/min (10/16/15 4:51 PM) Blood Pressure [90-140/60-90 mmHg] 128/78 mmHg (10/16/15 4:51 PM) SpO2 98 % (10/16/15 4:51 PM) Problem List Condition Effective Dates Status [...] Daily, # 60 tabs, 1 Refill(s), Pharmacy: [id number], 2 tabs Oral Daily,x30 days Start Date: [...] smoker Assessment and Plan Extracted from: Title: Major depression Author: Arnie Fernandez DO Date: 10/16/15 Assessment/Plan Major depression 1. 25 minutes was spent etdl-ut-hjoz with this patient today , greater than 50 percent of the time was spent with counseling. 2. At this time she denies any suicidal thoughts. We will set her up to see Jannet Grover for counseling. 3. Zoloft was increased to 200 mg daily. 4. Follow-up in 2 weeks for reevaluation . Ordered: Office Visit Level 4 Est [id number] Orders: sertraline, 200 mg 2 tabs, Oral, Daily, # 60 tabs, 1 Refill(s), Pharmacy: [facility], 2 tabs Oral Daily,x30 days
--- OUTSIDE RECORDS SUMMARY | 2017-10-03 05:05 | External Medical Summary | Continuity of Care Document ---
:1994 Author Organization [facility] Address [address] [place], [place] [id number] Phone Care Team Providers Name Role Phone [...] admnin, 1 vac, sngl/combo 19 Yrs + TDAP VACCINE >7 IM OB Visit No Charge Results Test Name Date and Time Measure Units Reference Range Abnormal Flag Comments Unknown Advance Directives Directive Yes / No Effective Date File Name Unknown Encounters Encounter Practice Location Reason(s) Diagnoses Date Provider Care Team Description For Visit Members Camelia [place] for Jul-2 Mcfadden Referring In Womens suprvsn of normal 8-201 Alycia. Provider: [facility], first preg, third 7 700 Arnie PO Box [id number] weeks Medical [facility], 720 1522, gestation of [facility], [facility] , [facility], [facility], Drive, [id number], [place] [facility] [place], [address]. tel: [phone] tel: [phone] [facility]. [id number] tel: [phone] Camelia Hernandezr for Sep-1 Mcfadden Referring In Womens suprvsn of normal 4-201 Alycia. Provider: [facility], first preg, third 7 700 Arnie PO Box [id number] weeks Medical [facility], 720 1522, gestation of [facility], [facility], [address], [id number], [place], [address]. tel: [phone] tel: [facility]. [id number] tel: [phone] Camelia Lopezntr for Aug-2 Mcfadden Referring In Womens suprvsn of normal 4-201 Alycia. Provider: Gabriella NICOLAS, first preg, 7 700 Arnie PO Box second [facility], 720 1522, [id number] [facility], gestation of [facility] [place], [address], , [place], [place], [address]. tel:[phone] tel:+ , US. [id number] tel: [phone] Camelia [place] 23 weeks Aug-0 Mcfadden Referring In Womens Ultrasound gestation of 2-201 Alycia. Provider: Gabriella NICOLAS, pregnancyFam hx 7 700 Arnie PO Box of [facility], 720 1522, malform, [facility], deformations and Dr [facility], chromsoml [address], [address], , abnltOther spec [facility], [place], [address]. tel: states [phone] tel: , [place]. [id number] tel: [phone] Camelia Hyde Encntr for Philip-2 Mcfadden Referring In Womens suprvsn of normal 7-201 Alycia. Provider: Gabriella NICOLAS, first preg, 7 700 Arnie PO Box second [facility], 720 1522, [id number] weeks [facility], gestation of [facility] SHANNON, pregnancyFam hx [address], [address], , of [facility] [place], [facility] [place], [place], [address]. tel: deformations and tel: [facility] , [place]. [id number] tel: [phone] Camelia Hyde Low lying Remington-2 Mcfadden Referring In Womens placenta NOS or 9-201 Alycia. Provider: Gabriella NICOLAS, w/out hemorrhage, 7 700 Arnie PO Box second [facility], 720 1522, [id number] weeks [facility], gestation of [facility] [place]ON, [address], , [place], [place], [address]. tel:[phone] tel:[phone] , [place]. [id number] tel: [phone] Camelia [place] Maternal care for Remington-2 Mcfadden Referring In Womens Ultrasound excess 9-201 Alycia. Provider: Gabriella NICOLAS, growth, second 7 700 Arnie PO Box tri, [id number] weeks [facility], 720 1522, gestation of [facility], pregnancyFa hx , [facility], of congen [address], [address], , malform, [place], [place], [address]. tel: chromsoml abnlt [phone] tel:+ , [place]. 6576806 tel: [phone] Camelia Hyde Encntr for Remington-0 Mcfadden Referring In Womens suprvsn of normal 2-201 Alycia. Provider: Gabriella NICOLAS, first preg, 7 700 Arnie PO Box second [facility], 720 1522, [id number] weeks [facility], gestation of Dr, [facility], pregnancyFa hx [address], [address], , of congen [place], [place], [address]. tel: deformations and [phone] tel: chromsoml abnlt , US. [id number] tel: [phone] Camelia [place] Encntr screen for May-0 Mcfadden Referring In Womens infections w sexl 5-201 Alycia. Provider: Gabriella NICOLAS, mode of 7 700 Arnie PO Box [facility]Encounte [facility], 720 1522, r for screening [facility], for oth , [facility], infec/parastc [address], [address], , diseasesEncntr [place], [place], [address]. tel: normal first [phone] tel: preg, first , [place]. [id number] trimesterEncounte tel: r for [phone] screening of [id number] weeks gestation of pregnancyOther spec postprocedural states Associates [place] Encntr screen for Manfred-0 Trujillo Referring In Womens infections w sexl 5-201 Zoe. Provider: Gabriella NICOLAS, mode of transmiss 7 700 Arnie PO Box Medical [facility], 720 1522, [facility], , [facility], [address], , [place], [place], [address]. tel: [phone] tel: , . [id number] tel: [phone] Camelia Hyde Delgado Referring In Womens 8-201 Audrey. Provider: Gabriella NICOLAS, 3 700 [facility], 720 1522, [facility] Dr Radha, [facility], [address], [id number], [place], [place], [address]. tel: [phone] tel:[phone] , . [id number] tel: [phone] Family History Family Member Diagnosis Age At [...] of Diabetes Immunizations Vaccine Date Status Comments Tdap completed Source: New Immunization Record Influenza, injectable, completed Source: Other Provider quadrivalent, preservative free, 3 yrs or older Payers Payer name Insurance type Covered republican ID Authorization(s) [facility] [id number] [facility] [id number] Social History Type Description Quantity Date Captured Alcohol Use Details No Caffeine Use Details Unknown Tobacco Use Status Smoking Status Never smoker Vital Signs Date / Height Weight BMI Pulse Blood Temperature Respiratory Body Head BMI Time: Rate Pressure Rate Surface Circumference percentile Area 32.0 -2017 1 10:42 kg/m AM eter (2) 191.60 32.3 115/64 -2017 lbs 8 mm[Hg] 10:49 kg/m AM eter (2) Chief Complaint And [...] Complete OB Ultrasound > 14 Ordered Weeks (67183) Future Order: Radiology Order Ultrasound, OB Limited ([id number]) Ordered Date Type Problem Goal Intervention Status [...]
--- OUTSIDE RECORDS SUMMARY | 2017-10-03 05:05 | External Medical Summary | Continuity of Care Document ---
:1994 Author Organization [facility] Address [address] [place], [place] [phone] Phone Care Team Providers Name Role Phone Tecvane AHMADI Arnie Unavailable Unavailable Allergies, Adverse Reactions, Alerts Substance Reaction Severity Status No Known Drug Allergies Unknown Active Medications Medication Instructions Dosage Effective Dates (start - Status Comments stop) ORAL TABLET - Active Problems Condition Effective Dates (start - stop) Clinical Status Maternal care for excess growth, - second tri, unsp 19 weeks gestation of - Fam hx of congen malform, deformations - and chromsoml abnlt Fam hx of congen malform, deformations - and chromsoml abnlt Encntr for suprvsn of normal first - preg, second trimester 15 weeks gestation of - Low lying placenta NOS or w/out - [...] spec postprocedural states - Procedures Procedure Date Ultrasound exam of preg uterus, complete Results Test Name Date and Time Measure [...] PO Box second [facility], 720 1522, [id number] weeks [facility], gestation of Dr, [facility], [address], , [place], [place], [address]. tel:[phone] tel:+ , [place]. 7759541 tel: [phone] Camelia [place] Maternal care for Remington-2 Mcfadden Referring In Womens Ultrasound excess - Alycia. Provider: Gabriella NICOLAS, growth, second 7 700 Arnie PO Box tri, [id number] weeks [facility], 720 1522, gestation of [facility], pregnancyFam hx , [facility], of congen [address], [address], , malform, [place], [place], [address]. tel: chromsoml abnlt [phone] tel: , [place]. [id number] tel: [phone] Camelia [place] Fam hx of congen Remington-0 Mcfadden Referring In Womens malform, 2-201 Alycia. Provider: Gabriella NICOLAS, deformations and 7 700 Arnie PO Box chromsoml [facility], 720 1522, abnltEncntr for [facility], suprvsn of normal , [facility], first preg, [address], [address], , second [place], [id number] [place], [address]. tel:+ gestation of [phone] tel: , [place]. [id number] tel: [phone] Camelia Hyde Encntr screen for May-0 Mcfadden Referring In Womens infections w sexl 5-201 Alycia. Provider: Gabriella NICOLAS, mode of 7 700 Arnie PO Box transmissEncounte Medical [facility], 720 1522, r for screening [facility], for oth , [facility], infec/parastc [address], [address], , diseasesEncntr [place], [place], [address]. tel: normal first [phone] tel: preg, first , . [id number] trimesterEncounte tel: r for [phone] screening of [id number] weeks gestation of pregnancyOther spec postprocedural states Associates Barrett Encntr screen for Manfred-0 Truj[place] Referring In Womens infections w sexl 5-201 Zoe. Provider: Gabriella NICOLAS, mode of transmiss 7 700 Arnie [facility], 720 1522, [facility] Dr Radha, [facility], [address], [address], [id number], [place], [address]. tel:[phone] tel: , . [id number] tel: [phone] Camelia [place] Aug-0 Delgado Referring In Womens 8-201 Audrey. Provider: Gabriella NICOLAS, 3 700 [employer], 720 1522, [place] [address], [facility], [address], [address], [id number], [place], [address]. tel: [phone] tel: , . [id number] tel: [phone] Family History Family Member Diagnosis Age At [...] older Payers Payer name Insurance type Covered libertarian ID Authorization(s) [facility]O KENN[facility] [id number] Social History Type Description Quantity Date Captured Unknown Vital Signs Date / Height Weight BMI [...] Complete OB Ultrasound > 14 Ordered Weeks (09109) Date Type Problem Goal Intervention Status Start [...]
--- OUTSIDE RECORDS SUMMARY | 2017-10-03 05:05 | External Medical Summary | Referral Summary ---
:1995 Author Care Team Providers Name Role Phone Arnie Fernandez Primary Care Physician Encounter VC Date(s): 02/26/15 - 02/26/15 Via MARIA ISABEL Diehl, Barrett Family [address] [place] [address]- Discharge Disposition: Home or Self Care Attending Physician: Arnie Fernandez DO Admitting Physician: Arnie Fernandez DO Vital Signs Most recent to oldest [Reference Range]: 1 Temperature Tympanic [36.6-38.1 degC] 36.5 degC *LOW* (02/26/15 3:06 PM) Peripheral Pulse Rate [60-100 bpm] 64 bpm (02/26/15 3:06 PM) Blood Pressure [90-140/60-90 mmHg] 117/62 mmHg (02/26/15 3:06 PM) Problem List Condition Effective Dates Status Health Status Informant Heart defect(Confirmed)1 Active 1age 13 months ventricular septal defect repair. Allergies, Adverse Reactions, Alerts No Known Medication Allergies Medications cyclobenzaprine 10 mg oral tablet 1 tabs, Oral, Bedtime (once a day), as needed for spasm, # 30 tabs, 0 Refill(s) , Pharmacy: [facility], 1 tabs Oral Bedtime (once a day),PRN:as needed for spasm Start Date: 02/26/15 Stop Date: 03/28/15 Status: Orderedibuprofen 200 mg oral tablet 3 tabs, Oral, q6hr, as needed for pain, 0 Refill(s) Start Date: 08/04/14 Status: Orderednaproxen 500 mg oral tablet 1 tabs, Oral, BID, # 60 tabs, 0 Refill(s), Pharmacy: [facility], 1 tabs Oral BID Start Date: 02/26/15 Status: OrderedUltram 50 mg oral tablet 1 tabs, Oral, q6hr, as needed for pain, # 30 tabs, 0 Refill(s) Start Date: 02/26/15 Stop Date: 03/28/15 Status: OrderedZoloft 100 mg oral tablet 1 tabs, Oral, Daily, # 30 tabs, 2 Refill(s), Pharmacy: [facility], 1 tabs Oral Daily Start Date: 12/09/14 Status: Ordered Results No data available for [...] Visit Note Author: Arnie Fernandez DO Date: 02/26/15 Assessment/Plan Ordered: cyclobenzaprine, 1 tabs, Oral, Bedtime (once a day), as needed for spasm, # 30 tabs, 0 Refill(s), Pharmacy: [facility], 1 tabs Oral Bedtime (once a day),PRN:as needed for spasm naproxen, 1 tabs, Oral, BID, # 60 tabs, 0 Refill(s), Pharmacy: [facility], 1 tabs Oral BID traMADol, 1 tabs, Oral, q6hr, as needed for pain, # 30 tabs, 0 Refill(s) Office Visit Level 3 Est 64157 Mid back pain: 1. I would recommend holding off on chiropractic treatment given that it's making her symptoms worse. 2. Naprosyn 500 mg twice a day for 2-4 weeks. 3. Cyclobenzaprine 10 mg at bedtime for 2-4 weeks. 4. Ultram 50 mg, one tablet every 6 hours as needed for pain not controlled by the above. 5. Follow-up in 2 weeks if no improvement. We may consider sending her to physical therapy.
--- OUTSIDE RECORDS SUMMARY | 2017-10-03 05:05 | External Medical Summary | Continuity of Care Document ---
:1994 Author Organization [facility] Address [address] [place], [place] [id number] Phone Care Team Providers Name Role Phone [...] second trimester 27 weeks gestation of - 15 weeks gestation of - Encntr for suprvsn of normal first - preg, second trimester Fam hx of congen malform, deformations - [...] for screening for oth - infec/parastc diseases Encounter for screening of - mother 11 weeks gestation of - Encntr for suprvsn of normal first - preg, first trimester Other spec postprocedural states - Encntr for suprvsn of normal first - preg, second trimester Fam hx of congen malform, deformations - and chromsoml abnlt 23 weeks gestation of - 23 weeks gestation of - Fam hx of congen malform, deformations - and chromsoml abnlt Other spec postprocedural states - Procedures Procedure Date OB Visit No Charge Hemoglobin count, colorimetric Hematocrit blood count Glucose test Venpnctr fngr/heel/ear stick routne Results Test Name Date and Time Measure Units Reference Range Abnormal Flag Comments Panel Description: Glucose [Mass/volume] in Serum or Plasma --1 hour post 50 g glucose PO GLUCOSE, 111 mg/dL <140 N Test performed at [facility] [employer] SCREEN 11:45:00 [facility] [id number] (50G)-[address] [place] [address]Wxwlhcfr: CHRIS WAKEFIELD DO,MPH Panel Description: HEMOGLOBIN + HEMATOCRIT HEMOGLOBIN 11:45:00 11.3 g/dL 11.7-15.5 L HEMATOCRIT 11:45:00 33.2 % 35.0-45.0 L REPORT COMMENT:FASTING :NOTest performed at [facility] [id number] [place] [id number]: CHRIS WAKEFIELD DO,MPH Advance Directives Directive Yes / No Effective Date File Name Unknown Encounters Encounter Practice Location Reason(s) Diagnoses Date Provider Care Team Description For Visit Members Camelia Moore for Mcfadden Referring In Womens suprvsn of normal 4-201 Alycia. Provider: Gabriella NICOLAS, first preg, 7 700 Arnie PO Box second [facility], 720 1522, [id number] weeks Elizabeth Gisele Garcia, gestation of Dr [facility] [place], [address], [id number], Barrett Hyde, [place], [address]. tel:[phone] tel:[phone] , [place]. [id number] tel: [phone] Camelia Hyde 23 weeks Aug-0 Mcfadden Referring In Womens Ultrasound gestation of 2-201 Alycia. Provider: Gabriella NICOLAS, pregnancyFam hx 7 700 Arnie PO Box of [facility] [place], 720 1522, malform, [facility], deformations and , [facility], chromsoml [address], , abnltOther spec Barrett [place], [place], [address]. tel: states [phone] tel:+ , [place]. [id number] tel:[phone] Camelia Hyde Encntr for Philip-2 Mcfadden Referring In Womens suprvsn of normal 7-201 Alycia. Provider: Gabriella NICOLAS, first preg, 7 700 Arnie PO Box second [facility], 720 1522, trimesterFam hx [facility], [facility] , [facility] [place], malform, [address], , deformations and Barrett [place], chrom[place]lt23 [place], [address]. tel:+ weeks gestation tel:+ of , [place]. [id number] tel: [phone] Camelia Hyde Low lying Remington-2 Mcfadden Referring In Womens placenta NOS or 9-201 Alycia. Provider: Gabriella NICOLAS, w/out hemorrhage, 7 700 Arnie PO Box second [facility] [place], 720 1522, [id number] weeks [facility], gestation of Dr, [facility], [address], , [place], [place], [address]. tel: tel:+ , [place]. [id number] tel: [phone] Camelia Hyde Maternal care for Remington-2 Mcfadden Referring In Womens Ultrasound excess 9-201 Alycia. Provider: Gabriella NICOLAS, growth, second 7 700 Arnie PO Box tri, unsp19 weeks [facility] [place], 720 1522, gestation of [facility], pregnancyFam hx , [facility], of [facility] [address], [address], , malform, Barrett Hyde, [place], [address]. tel: chromsoml abnlt [phone] tel:+ , [place]. [id number] tel:[phone] Camelia Hyde 15 weeks Remington-0 Mcfadden Referring In Womens gestation of 2-201 Alycia. Provider: Gabriella NICOLAS, pregnancyEncntr 7 700 Arnie PO Box for suprvsn of [facility] [place], 720 1522, normal first [facility], preg, second Dr, [facility], trimesterFam hx [address], , of congen Barrett Hyde, [place], [place], [address]. tel: deformations and tel: chromsoml [facility] [place] , [place]. [id number] tel: [phone] Camelia Hyde Encntr screen for May-0 Mcfadden Referring In Womens infections w sexl 5-201 Alycia. Provider: Gabriella NICOLAS, mode of 7 700 Arnie PO Box transmissEncounte [facility] [place], 720 1522, r for screening [facility], for oth , [facility], infec/parastc [address], , diseasesEncounter [place], [place], [address]. tel: screening of tel: weeks , [place]. [id number] gestation of tel: pregnancyEncntr [phone] for suprvsn of normal first preg, first trimesterOther spec postprocedural states Camelia Moore screen for Manfred-0 [place] Referring In Womens infections w sexl 5-201 Zoe. Provider: Gabriella NICOLAS, mode of transmiss 7 700 Arnie [employer], [address] 1522, [address], [facility], [address], , Barrett Hyde, [place], [address]. tel:[phone] tel: , [place]. [id number] tel: [phone] Camelia Hyde Aug-0 Delgado Referring In Womens 8-201 Audrey. Provider: Gabriella NICOLAS, 3 700 Arnie PO Box [facility], [address] 15[address], [address], [facility], [address], , Barrett Hyde, [place], [address]. tel:[phone] tel:[phone] , . [id number] tel:[phone] Family History Family Member Diagnosis Age At [...] Insurance type Covered libertarian ID Authorization(s) MILO ORTEGA BL [id number] Social History Type Description Quantity Date Captured Alcohol Use Details No Caffeine Use Details soda 1 cup per day Tobacco Use Status Never smoked tobacco Smoking Status Never smoker Vital Signs Date / Height Weight BMI Pulse Blood Temperature Respiratory Body Head BMI Time: Rate Pressure Rate Surface Circumference percentile Area 189.40 32.0 lbs 1 mm[Hg] 11:26 kg/m AM eter (2) Chief Complaint And [...] Complete OB Ultrasound > 14 Ordered Weeks (36290) Future Order: Radiology Order Ultrasound, OB Limited ([id number]) Ordered Date Type Problem Goal Intervention Status [...]
--- OUTSIDE RECORDS SUMMARY | 2017-10-03 05:06 | External Medical Summary | Continuity of Care Document ---
:1994 Author Organization [facility] Address [address] [place], [place] [id number] Phone Care Team Providers Name Role Phone [...] of - Other spec postprocedural states - 23 weeks gestation of - Fam hx of [facility] malform, deformations - and chromsoml abnlt Other [...] Womens Ultrasound gestation of 2-201 Alycia. Provider: Health MARIA ISABEL, pregnancyFam hx 7 700 Arnie PO Box of [facility] [place], 720 1522, malform, [facility], [facility] and , [facility], chromsoml [address], , abnltOther spec Barrett Hyde, [place], [address]. tel:+ states tel:[phone] , [place]. [id number] tel: [phone] Camelia Hyde Encntr for Mcfadden Referring In Womens suprvsn of normal 7-201 Alycia. Provider: Gabriella NICOLAS, first preg, 7 700 Arnie PO Box second [facility], 720 1522, [id number] weeks [facility], [facility] of , [facility] [place], pregnancyFam hx [address], , of [facility] Barrett Hyde, [place], [place], [address]. tel: deformations and [phone] tel: chromsoml abnlt , [place]. [id number] tel: [phone] Camelia Hyde Low lying Apr- Mcfadden Referring In Womens placenta NOS or 9-201 Alycia. Provider: Gabriella NICOLAS, w/out hemorrhage, 7 700 Arnie PO Box second [facility], 720 1522, [id number] weeks [facility], gestation of Dr [facility] [place], [address], , [place], [address]. tel:[phone] tel:[phone] , [place]. [id number] tel: [phone] Camelia Hyde Maternal care for Remington-2 Mcfadden Referring In Womens Ultrasound excess 9-201 Alycia. Provider: Gabriella NICOLAS, growth, second 7 700 Arnie PO Box tri, unsp19 weeks [facility], 720 1522, gestation of [facility], pregnancyFa hx , [facility], of congen [address], , malform, Barrett Hyde, [place], [address]. tel:+ chromsoml abnlt [phone] tel:+ , [place]. [id number] tel: [phone] Camelia Hyde Encntr for Remington-0 Mcfadden Referring In Womens suprvsn of normal 2-201 Alycia. Provider: Gabriella NICOLAS, first preg, 7 700 Arnie PO Box second [facility] [place], 720 1522, [id number] weeks [facility], gestation of Dr, [facility], pregnancyFa hx [address], , of congen Barrett Hyde, [place], [address]. tel:+ deformations and [phone] tel:+ chromsoml abnlt , [place]. [id number] tel: [phone] Camelia Lopezntr screen for May-0 Mcfadden Referring In Womens infections w sexl 5-201 Alycia. Provider: Gabriella NICOLAS, mode of 7 700 Arnie PO Box [facility], [address] 1522, r for screening [facility], for oth , [facility], infec/parastc [address], [address], , diseasesEncntr Barrett Hyde, [place], [address]. tel:+ normal first [phone] tel:+ preg, [facility] , [place]. [id number] trimesterEncounte tel: r for [phone] screening of weeks gestation of pregnancyOther spec postprocedural states Camelia Hernandezr screen for Manfred-0 [place] Referring In Womens infections w sexl 5-201 Zoe. Provider: Gabriella NICOLAS, mode of transmiss 7 700 Arnie PO Box Medical [place], 720 1522, [facility] Radha, , [facility], [address], , [place], [address]. tel:[phone] tel: , . [id number] tel: [phone] Camelia Hyde Delgado Referring In Womens 8-201 Audrey. Provider: Gabriella NICOLAS, 3 700 Arnie [facility], 720 1522, [facility] Dr Radha, [facility], [address], , [place], [address]. tel:[phone] tel:[phone] , . [id number] tel: [phone] Family History Family Member Diagnosis Age At [...] Insurance type Covered republican ID Authorization(s) MILO ORTEGA BL [id number] Social History Type Description Quantity Date Captured Alcohol Use Details No Caffeine Use Details soda 1 cup per day Tobacco Use Status Never smoked tobacco Smoking Status Never smoker Vital Signs Date / Height Weight BMI Pulse Blood Temperature Respiratory Body Head BMI Time: Rate Pressure Rate Surface Circumference percentile Area 186.50 31.5 lbs 2 mm[Hg] 11:03 kg/m AM eter (2) Chief Complaint And [...] Complete OB Ultrasound > 14 Ordered Weeks ([id number]) Future Order: Radiology Order Ultrasound, OB Limited ([id number]) Ordered Date Type Problem Goal Intervention Status [...]
--- OUTSIDE RECORDS SUMMARY | 2017-10-03 05:06 | External Medical Summary | Continuity of Care Document ---
:1994 Author Organization [facility] Address [address] [place], [place] [id number] Phone Care Team Providers Name Role Phone [...] For Visit Members Camelia Hyde Encntr for Mcfadden Referring In Womens suprvsn of normal 2-201 Alycia. Provider: Gabriella NICOLAS, first preg, third 7 700 Arnie PO Box [id number] weeks [facility], 720 1522, gestation of [facility], , [facility], [address], [address], [id number], Barrett Hyde, [facility] [place], [address]. tel:[phone] tel:[phone] , [place]. [id number] tel: [phone] Camelia Hyde Encntr for Nov-1 Mcfadden Referring In Womens suprvsn of normal 6-201 Alycia. Provider: Health MARIA ISABEL, first preg, third 7 700 Arnie PO Box [id number] weeks Medical [facility], 720 1522, gestation of [facility], , [facility], [address], [id number], [place], [facility] [place], [address]. tel:[phone] tel: , [place]. [id number] tel: [phone] Camelia Hyde Encntr for Nov-1 Mcfadden Referring In Womens suprvsn of normal 0-201 Alycia. Provider: Health MARIA ISABEL, first preg, third 7 700 Arnie PO Box [id number] weeks [facility] [place], 720 1522, gestation of [facility], , [facility], [address], , [place], [facility] [place], [address]. tel:[phone] tel: , . [id number] tel: [phone] Camelia Hyde Encntr for Nov-0 Mcfadden Referring In Womens suprvsn of normal 2-201 Alycia. Provider: Gabriella NICOLAS, first preg, third 7 700 Arnie PO Box [id number] weeks [facility] [place], 720 1522, gestation of [facility], , [facility], [address], , [place], [facility] [place], [address]. tel:[phone] tel: , [place]. [id number] tel: [phone] Camelia Hyde Encntr for Oct-2 Mcfadden Referring In Womens suprvsn of normal 6-201 Alycia. Provider: Gabriella NICOLAS, first preg, third 7 700 Arnie PO Box [id number] weeks [facility] [place], 720 1522, gestation of [facility], , [facility], [address], [id number], Barrett Hyde, [facility] [place], [address]. tel:[phone] tel: , . [id number] tel: [phone] Camelia Hyde Encntr for Oct-1 Mcfadden Referring In Womens suprvsn of normal 2-201 Alycia. Provider: Gabriella NICOLAS, first preg, third 7 700 Arnie PO Box [id number] weeks [facility] [place], 720 1522, gestation of [facility], , [facility], [address], , [place], [facility] [place], [address]. tel:[phone] tel:+ , [place]. [id number] tel: [phone] Camelia Hyde Encntr for Sep-2 Mcfadden Referring In Womens suprvsn of normal 8-201 Alycia. Provider: Gabriella NICOLAS, first preg, third 7 700 Arnie PO Box [id number] weeks [facility], 720 1522, gestation of [facility], , [facility], [address], , [place], [facility] [place], [address]. tel:[phone] tel: , [place]. [id number] tel: [phone] Camelia Hyde Encntr for Sep-1 Mcfadden Referring In Womens suprvsn of normal 4-201 Alycia. Provider: Gabriella NICOLAS, first preg, third 7 700 Arnie PO Box [id number] weeks [facility], 720 1522, gestation of [facility], Dr [facility], [address], [address], , [place], [facility] [place], [address]. tel:[phone] tel: , [place]. [id number] tel: [phone] Camelia Hyde Encntr for Aug-2 Mcfadden Referring In Womens suprvsn of normal 4-201 Alycia. Provider: Gabriella NICOLAS, first preg, 7 700 Arnie PO Box second [facility], 720 1522, [id number] weeks [facility], gestation of [facility], [address], [address], , [place], [facility] [place], [address]. tel:[phone] tel: , . [id number] tel: [phone] Camelia Hyde 23 weeks Aug-0 Mcfadden Referring In Womens Ultrasound gestation of 2-201 Alycia. Provider: Gabriella NICOLAS, pregnancyFam hx 7 700 Arnie PO Box of [facility] Teck, 720 1522, malform, [facility], deformations and , [facility], chromsoml [address], , abnltOther spec Barrett Hyde, [place], [address]. tel:+ states tel:+ , [place]. [id number] tel: [phone] Camelia Hyde Encntr for Philip-2 Mcfadden Referring In Womens suprvsn of normal 7-201 Alycia. Provider: Gabriella NICOLAS, first preg, 7 700 Arnie PO Box second [facility], 720 1522, [id number] weeks [facility], gestation of , [facility], pregnancyFam hx [address], , of congen [place], [place], [address]. tel: deformations and [phone] tel:+ chromsoml [facility] , [place]. [id number] tel: [phone] Camelia Hyde Low lying Remington-2 Mcfadden Referring In Womens placenta NOS or 9-201 Alycia. Provider: Gabriella NICOLAS, w/out hemorrhage, 7 700 Arnie PO Box second [facility], 720 1522, [id number] weeks [facility], gestation of Dr, [facility] [place], [address], , [place], [place], [address]. tel:+ tel:+ , [place]. 1138331 tel: [phone] Camelia Hyde Maternal care for Remington-2 Mcfadden Referring In Womens Ultrasound excess 9-201 Alycia. Provider: Gabriella NICOLAS, growth, second 7 700 Arnie PO Box tri, [id number] weeks [facility], 720 1522, gestation of [facility], pregnancyFam hx , [facility] [place], of [facility] [address], [address], , malform, Barrett Hyde, [place], [address]. tel: chromsoml abnlt [phone] tel:+ , [place]. [id number] tel:[phone] Camelia Hyde Encntr for Remington-0 Mcfadden Referring In Womens suprvsn of normal 2-201 Alycia. Provider: Gabriella NICOLAS, first preg, 7 700 Arnie PO Box second [facility], 720 1522, [id number] weeks [facility], gestation of , [facility], pregnancyFam hx [address], , of congen Barrett Hyde, [place], [address]. tel: deformations and tel: chromsoml [facility] , . [id number] tel: [phone] Camelia Hyde Encntr screen for May-0 Mcfadden Referring In Womens infections w sexl 5-201 Alycia. Provider: Gabriella NICOLAS, mode of 7 700 Arnie PO Box transmissEncounte [facility] [place], 720 1522, r for screening [facility], for oth , [facility], infec/parastc [address], [address], , diseasesEncntr Barrett Hyde, [place], [address]. tel: normal first tel: preg, first , [place]. [id number] trimesterEncounte tel: r for [phone] screening of [id number] weeks gestation of pregnancyOther spec postprocedural states Associates Barrett Lopezntr screen for Manfred-0 [place] Referring In Womens infections w sexl 5-201 Zoe. Provider: Gabriella NICOLAS, mode of transmiss 7 700 Arnie [facility], [address] 1522, [facility] [address] Radha, [facility], [address], [address], , Barrett Hyde, [facility] [place], [address]. tel: tel:+ , [place]. [id number] tel: [phone] Camelia Hyde Aug-0 Delgado Referring In Womens 8-201 Audrey. Provider: Gabriella NICOLAS, 3 700 Arnie [facility], 720 1522, [facility] Dr Radha, [facility], [address], [address], , Barrett Hyde, [facility] [place], [address]. tel:[phone] tel:[phone] , . [id number] tel: [phone] Family History Family Member Diagnosis Age At [...] name Insurance type Covered republican ID Authorization(s) [facility] [id number] [facility] [id number] [facility] [id number] Social History Type Description Quantity Date Captured Alcohol Use Details No Caffeine Use Details Unknown Tobacco Use Status Smoking Status Never smoker Vital Signs Date / Height Weight BMI Pulse Blood Temperature Respiratory Body Head BMI Time: Rate Pressure Rate Surface Circumference percentile Area 200.70 33.9 94/50 -2017 lbs 1 mm[Hg] 10:03 kg/m AM eter (2) Chief Complaint And Reason For Visit Unknown Chief Complaint And Reason For Visit Reason For Referral Reason For Referral Unknown Plan Of Care Date Type Action Status Goal Tobacco cessation counseling completed Goal Lifestyle education regarding completed diet Goal Tobacco cessation counseling completed Goal Tobacco cessation counseling completed Future Order: Radiology Order Complete OB Ultrasound > 14 Ordered Weeks ([id number]) Future Order: Radiology Order Ultrasound, OB Limited ([id number]) Ordered Date Type Problem Goal Intervention Status [...]
--- OUTSIDE RECORDS SUMMARY | 2017-10-03 05:06 | External Medical Summary | Continuity of Care Document ---
:1995 Author Organization [facility] Allergies Active Description Code Type Severity Reaction Onset Reported/ Identified Relationship Clinical to Patient Status Yes No Known 43249 3 N/A N/A Drug 0 Allergies Medications Problems Date Dx Attending Type Code Diagnosis Diagnosed By Coded 05/04/2017 Alycia Mcfadden O36.62x0 Maternal care for excess growth, second tri, unsp 05/04/2017 Alycia Mcfadden Z3A.19 19 weeks gestation of 05/04/2017 Alycia Mcfadden Z82.79 Fam hx of congen malform, deformations and chromsoml abnlt 06/07/2017 Alycia Mcfadden Z3A.23 23 weeks gestation of 06/07/2017 Alycia Mcfadden Z82.79 Fam hx of congen malform, deformations and chromsoml abnlt 06/07/2017 Alycia Mcfadden Z98.890 Other spec postprocedural states Procedures Code Description Performed By Performed On 05/04/2017 89598 Ultrasnd exam of preg uterus, compl 06/07/2017 87922 Ultrasnd exam, preg uterus, limited Echo 06/07/2017 54583 exam of heart 06/07/2017 93557 Doppler color flow mapping 07/20/2017 23204 Immuniz admnin, 1 vac, sngl/combo TDAP 07/20/2017 58843 VACCINE >7 IM 08/17/2017 22960 Immuniz admnin, 1 vac, sngl/combo Flu 08/17/2017 61473 Vaccine - Quadrivalent Results Encounters ACCT No. Visit Discharge Status Pt. Type Provider Facility Loc./Unit Complaint Date/Time [id number] 01/03/2014 01/03/2014 CLS Outpatient 09:24:00 23:59:59 [id number] 09/27/2017 09/27/2017 CLS Outpatient [place]add[place], 10:15:00 23:59:59 Alycia Kendrick [id number] 09/21/2017 09/21/2017 CLS Outpatient [place], 09:40:00 23:59:59 Alycia Kendrick [id number] 09/15/2017 09/15/2017 CLS Outpatient Mc[place]add[place], 10:15:00 23:59:59 Alycia Kendrick [id number] 09/07/2017 09/07/2017 CLS Outpatient Mc[place]adden, 09:40:00 23:59:59 Alycia Kendrick [id number] 08/31/2017 08/31/2017 CLS Outpatient Mcfadden, 10:45:00 23:59:59 Alycia Kendrick [id number] 08/17/2017 08/17/2017 CLS Outpatient Mc[facility]adden, 11:15:00 23:59:59 Alycia Kendrick [id number] 08/03/2017 08/03/2017 CLS Outpatient Mc[place]adden, 10:00:00 23:59:59 Alycia Kendrick [id number] 07/20/2017 07/20/2017 CLS Outpatient Mcfadden, 10:45:00 23:59:59 Alycia Kendrick [id number] 06/29/2017 06/29/2017 CLS Outpatient Mcfadden, 11:15:00 23:59:59 Alycia Kendrick [id number] 06/07/2017 06/07/2017 CLS Outpatient Mcfadden, 09:45:00 23:59:59 Alycia Kendrick [id number] 06/01/2017 06/01/2017 CLS Outpatient Mcfadden, 11:00:00 23:59:59 Alycia Kendrick [id number] 05/04/2017 05/04/2017 CLS Outpatient Mcfadden, 11:30:00 23:59:59 Alycia Kendrick [id number] 05/04/2017 05/04/2017 CLS Outpatient Mcfadden, 11:15:00 23:59:59 Alycia Kendrick [id number] 04/07/2017 04/07/2017 CLS Outpatient Mcfadden, 09:50:00 23:59:59 Alycia Kendrick [id number] 03/20/2017 03/20/2017 CLS Outpatient Mcfadden, 13:09:00 23:59:59 Alycia Kendrick [id number] 03/10/2017 03/10/2017 CLS Outpatient Mcfadden, 10:45:00 23:59:59 Alycia Kendrick [id number] 11/10/2016 11/10/2016 CLS Outpatient [place], 10:45:00 23:59:59 Zoe Ford
[2017-10-03 05:17] VITALS: BMI 33.6
[~2017-10-03 06:39] MED LIST: ACETAMINOPHEN 500 MG TABLET PO PRN; DiphenhydrAMINE 25 MG CAPSULE PO STA
[2017-10-03] MEDS ORDERED: MAG-AL + SIM ORAL LIQUID 30ml PO PRN (06:48)
[2017-10-03] MEDS ORDERED: CALCIUM CARBONATE Chewable 500mg TABLET PO PRN (06:48)
[2017-10-03] MEDS ORDERED: METHYLERGONOVINE 0.2 MG/ML INJECTION IM PRN (06:48)
[2017-10-03] MEDS ORDERED: ACETAMINOPHEN 500 MG TABLET PO PRN (06:48)
[2017-10-03] MEDS ORDERED: LIDOCAINE 1% (10mg/ml) 2mL INJ PF SDV ID PRN (06:48)
[2017-10-03] MEDS ORDERED: CARBOPROST 250 MCG/ML INJECTION IM PRN (06:48)
[2017-10-03] MEDS: LR 1,000 ML IV PRN ×4 (07:15→14:45)
[2017-10-03] MEDS ORDERED: D5LR 1,000 ML IV PRN (10:23)
[2017-10-03] MEDS ORDERED: OXYTOCIN DRIP 30 UNIT/500 ML ML IV PRN (10:23)
[2017-10-03] MEDS ORDERED: ONDANSETRON 4 MG/2 ML INJECTION IVP PRN ×2 (12:17→19:45)
[2017-10-03] MEDS ORDERED: NALOXONE 0.4 MG/ML INJECTION IVP PRN (12:17)
[2017-10-03] MEDS ORDERED: ROPIVACAINE 1% 10MG/ML INJ 200 MG, SUFentanil 50 MCG in NS 100 ML EPI PRN (12:17)
[2017-10-03] MEDS ORDERED: DiphenhydrAMINE 50 MG/ML INJECTION IVP PRN ×2 (12:17→19:45)
--- NOTE | 2017-10-03 12:21 | Anesthesia Preoperative Report ---
Anesthesia Epidural/Spinal Rec - Date and Time Date: 10/03/17 Preoperative Diagnosis: g1, po, 40 weeks Procedure: Labor Epidural Plan: Epidural - Vital Signs NPO since: mn /Para: P:0 Heart Rate: 142 - Medictaions & Allergies Inpatient Medications: Current Medications Acetaminophen (Tylenol) 1,000 mg PO Q5H PRN PRN Reason: Discomfort Last Admin: 10/03/17 05:42 Dose: 1,000 mg Acetaminophen (Tylenol) 500 - 1,000 mg PO Q4H PRN PRN Reason: Pain Al Hydroxide/Mg Hydroxide (Maalox Plus) 30 ml PO Q3H PRN PRN Reason: Indigestion Calcium Carbonate (Tums) 500 - 1,000 mg PO Q2H PRN PRN Reason: Indigestion Carboprost Tromethamine (Hemabate) 250 mcg IM O PRN PRN Reason: .Downtime Diphenhydramine HCl (Benadryl) 25 - 50 mg IVP Q3H PRN PRN Reason: Itching Lactated Ringer's (Lactated Ringers) 1,000 mls @ 100 mls/hr IV .Q10H PRN Last Admin: 10/03/17 10:51 Dose: 100 mls/hr Dextrose/Lactated Ringer's (Dextrose 5%-Lactated Ringers) 1,000 mls @ 125 mls/ hr IV .Q8H PRN PRN Reason: Labor Last Admin: 10/03/17 10:25 Dose: 125 mls/hr Oxytocin (Pitocin Drip) 30 unit in 500 mls @ 2 mls/hr IV .Q24H PRN; Protocol PRN Reason: Induction/Augmentation Last Admin: 10/03/17 10:25 Dose: 2 mls/hr Lidocaine HCl (Xylocaine-Mpf 1% Vial) 0.2 mg ID O PRN PRN Reason: IV Start Methylergonovine Maleate (Methergine) 0.2 mg IM O PRN Misoprostol (Cytotec) 800 mcg PA ONCE PRN Ondansetron HCl (Zofran) 4 mg IVP Q6H PRN PRN Reason: Nausea &/or vomiting Allergies/Adverse Reactions: Allergies Allergy/AdvReac Type Severity Reaction Status Date / Time No Known Allergies Allergy Unverified 08/31/16 21:40 - Home Medications Home Medications: Home Medications Medication Instructions Recorded Confirmed Type NO ROUTINE MEDS #0 07/06/16 History Vitamins 09/27/17 History - Medical History Cardiovascular: 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) Other History: Reports: Now - Surgical History HEENT Surgeries: Reports: Tonsillectomy (as a child) Cardiac Surgeries/Treatments: Reports: Other (heart surg at 13 months which was successful) Respiratory Surgery/Treatments: Reports: Other (tonsil) Anesthesia Reactions: None Hx Family Anesthesia Reaction: No - Social History Smoking Status: Never smoker - Pertinent Findings Lab Data: CBC and BMP 10/03/17 07:04 - Physical Exam Respiratory Exam: lungs clear, bilateral breath sounds equal Cardiovascular Exam: regular rate and rhythm - Airway Assessment Mallampati Score: II TMD: 3 Fingerbreadths Neck Extension: good Overall Assessment: may be difficult intubation - ASA ASA Score: 2 - Discussion Discussion: Discussed risks/options/alternatives of anesthesia and questions answered. Patient consents. Nursing pain assessment noted. Attestation Statement: Prior to the delivery of any anesthetic medication, I examined the patient, developed the plan, obtained the patient's consent and discussed the risk and benefits of the procedure with the patient/guardian.
[2017-10-03] MEDS ORDERED: CEFAZOLIN PREMIX (MC ONLY) 2 GM/50 ML BAG IV ONE (17:52)
[2017-10-03] MEDS ORDERED: CITRIC ACID/SODIUM CITRATE 30ml PO ONE (17:52)
[2017-10-03] MEDS ORDERED: FAMOTIDINE PB 20 MG/50 ML BAG IV ONE (17:52)
[2017-10-03] MEDS ORDERED: OXYTOCIN BOLUS BAG 30 UNIT/500 ML ML IV SCH (18:00)
[2017-10-03] MEDS ORDERED: LIDOCAINE 1.5% W/EPI 1:200,000 30ml SDV PF ONE (18:01)
[2017-10-03] MEDS ORDERED: ONDANSETRON 4 MG/2 ML INJECTION ONE (18:13)
[2017-10-03] MEDS: AZITHROMYCIN IV 500 MG in NS 250ml 250 ML IV SCH (18:30)
[2017-10-03] MEDS ORDERED: MORPHINE SULFATE PF 5mg/10ml INJ (Duramorph) ONE (18:50)
[2017-10-03] MEDS ORDERED: DiphenhydrAMINE 50 MG/ML INJECTION ONE (19:11)
[2017-10-03] MEDS ORDERED: NALOXONE 2 MG/2 ML INJECTION PFS IVP PRN (19:45)
[2017-10-03] MEDS ORDERED: OXYTOCIN DRIP 30 UNIT/500 ML ML IV SCH (20:33)
[2017-10-03] MEDS ORDERED: SIMETHICONE 80 MG CHEWABLE TABLET PO PRN (20:33)
[2017-10-03] MEDS ORDERED: HYDROCORTISONE 2.5% CREAM 30gm RECTALLY PRN (20:33)
[2017-10-03] MEDS ORDERED: DiphenhydrAMINE 25 MG CAPSULE PO PRN (20:33)
[2017-10-03] MEDS: IBUPROFEN 800 MG TABLET PO PRN (20:35)
[2017-10-03] MEDS: D5LR 1,000 ML IV SCH (21:39)
[2017-10-04] MEDS: SIMETHICONE 80 MG CHEWABLE TABLET PO SCH ×4 (01:53→20:18)
[2017-10-04] MEDS: HYDROCODONE/APAP 5mg/325mg TABLET PO PRN ×4 (04:54→20:19)
[2017-10-04] MEDS: D5LR 1,000 ML IV SCH (06:47)
--- NOTE | 2017-10-04 08:12 | Operative Note ---
DATE 10/03/2017 PREOPERATIVE DIAGNOSES 1. 22-year-old, 1 at 40 weeks 5 days gestational age. 2. Late decelerations with Pitocin. 3. Arrest of descent. POSTOPERATIVE DIAGNOSES 1. 22-year-old, 1 at 40 weeks 5 days gestational age. 2. Late decelerations with Pitocin. 3. Arrest of descent. PROCEDURE Primary low transverse section. SURGEON Dr. Alycia Mcfadden FORENSIC ANTHROPOLOGIST Kashif Banda, Debate Director ANESTHESIA Epidural by Ignacio Yoon CRNA COMPLICATIONS None. EBL 650 ml FINDINGS Viable male , cephalic SERGIO position, clear fluids, Apgars 8/9, weight 4062 g, name "Obed." There was a nuchal cord x 2. The uterus and adnexa appeared normal. INDICATIONS Ginger presented to [facility]aternal [facility] with complaints of worsening contractions. She changed her cervix from fingertip to 1 cm. Since she was past her EDC and appeared to be in latent labor, she was admitted. Her membranes were ruptured artificially returning clear fluids. She received an epidural. She was started on Pitocin when she did not change her cervix past 2 cm. I then placed a Ruiz bulb through her cervix to help with early dilation when she was still 2 cm. At one point the Pitocin had to be turned down and then discontinued due to late decelerations. Overall baby recovered but still had intermittent late decelerations. Her cervix never changed past 3.5 cm and -2 station. Due to the late decelerations and being remote from a vaginal delivery with a high station, she was consented for a . DESCRIPTION OF PROCEDURE The patient was taken to the operating room where her epidural was brought up to adequate surgical levels. She already had a Ruiz catheter in place. She was prepared and draped in the normal sterile fashion. A Pfannenstiel skin incision was made 2 cm above the symphysis pubis and carried down to the fascia. The fascia was incised in the midline and extended laterally with the Youssef scissors. The fascia was elevated and the underlying rectus muscles were dissected off. The peritoneum was entered with a combination of sharp and blunt dissection. This was extended superiorly and inferiorly with good visualization of the bladder. The bladder blade was inserted. A bladder flap was created sharply and the bladder blade was reinserted. The lower uterine segment was incised in a transverse fashion layer by layer with a scalpel and bluntly extended laterally. We encountered a venous sinus. The infant's head was delivered atraumatically. The nose and mouth were suctioned. The nuchal cord x 2 was reduced. The cord was clamped and cut. The infant was handed to Dr. Franz who was asked to attend due to the intermittent distress. The placenta delivered spontaneously. The uterus was exteriorized and cleared of all clots and debris. The uterine incision was closed with running locked O Monocryl. The right quarter of the incision was oversewn with 2-0 chromic for hemostasis. The left edge of the incision was also stick tied with 2-0 chromic. Cautery was used on the serosal edges for hemostasis. The uterus was then returned to the abdomen. The gutters were cleared of all clots and debris. The uterine incision was inspected one final time and still noted to be hemostatic. The peritoneum was closed with running 2 -0 Vicryl. Hemostasis was obtained in the rectus muscles with cautery. The fascia was closed with running 0 Vicryl. Hemostasis was obtained in the subcutaneous tissue with the cautery. The skin was closed with 4-0 Vicryl in a subcuticular manner. Steri-Strips were placed. Sponge, sharp and instrument counts were correct. The patient tolerated the procedure well and was taken to the recovery room in good condition. JOSE RAFAEL
--- NOTE | 2017-10-04 09:03 | OB/GYN Progress Note ---
OB-PP Progress Note - General PPD1 Maternal Group B Strep: Negative Maternal blood type: O+ Maternal Rubella Status: Immune - Subjective Date: 10/04/17 Lochia: Minimal Pain: controlled Voiding: bailey still in place Nausea or Vomiting Present: No - Objective Vital Signs: Last Vital Signs Temp 98.5 F 10/04/17 04:40 Pulse 69 10/04/17 04:40 Resp 16 10/04/17 04:40 BP 108/58 10/04/17 04:40 Pulse Ox 100 10/04/17 04:40 Urine Output: good General: alert and oriented Abdomen: fundus firm, non-tender, soft, non-distended Incision: normal, clean, no erythema, dry, intact Extremities: non-tender Laboratory: Laboratory Results - last 24 hr 10/04/17 01:21 WBC 13.1 H RBC 3.61 L Hgb 10.8 L D Hct 33.0 L D MCV 91.4 MCH 29.9 MCHC 32.7 RDW Std Deviation 45.9 Plt Count 157 MPV 11.3 - Assessment Assessment: Primary C/S - Plan Plan: routine care
[2017-10-04] MEDS: IBUPROFEN 800 MG TABLET PO PRN ×2 (09:54→20:20)
[2017-10-04] MEDS: DOCUSATE CALCIUM 240 MG CAPSULE PO SCH (09:55)
--- NOTE | 2017-10-04 11:27 | Anesthesia Postoperative Note ---
- Date and Time Date: 10/04/17 - Status Patient Participated in Evaluation: Patient Participated in Person Vital Signs: Temperature 97.6 F 10/04/17 10:20 Pulse Rate 73 10/04/17 10:20 Respiratory Rate 18 10/04/17 10:20 Blood Pressure 116/53 10/04/17 10:20 Pulse Oximetry 100 10/04/17 10:20 Respiratory Function: Airway Patent Cardiovascular Function: Regular Pulse EKG: Sinus Rhythm Mental Status: Alert and Oriented Pain Intensity: 5 Hydration: Taking PO Fluids Complications During Recover: None Apparent - Follow-Up Instructions Instructions: Per Surgeon
[2017-10-04 16:49] VITALS: RESP 16
[2017-10-04] MEDS: AZITHROMYCIN IV 500 MG in NS 250ml 250 ML IV SCH (23:34)
[2017-10-05] MEDS: SIMETHICONE 80 MG CHEWABLE TABLET PO SCH ×3 (00:07→13:10)
[2017-10-05] MEDS: HYDROCODONE/APAP 5mg/325mg TABLET PO PRN (00:24)
[2017-10-05] MEDS: IBUPROFEN 800 MG TABLET PO PRN ×2 (05:31→14:37)
--- NOTE | 2017-10-05 08:35 | OB/GYN Progress Note ---
OB-PP Progress Note - General PPD2 Maternal Group B Strep: Negative Maternal blood type: O+ Maternal Rubella Status: Immune - Subjective Date: 10/05/17 Lochia: Minimal Pain: controlled Voiding: voiding - Objective Vital Signs: Last Vital Signs Temp 97.7 F 10/05/17 05:30 Pulse 68 10/05/17 05:30 Resp 16 10/05/17 05:30 BP 121/55 10/05/17 05:30 Pulse Ox 97 10/05/17 05:30 General: alert and oriented Abdomen: fundus firm, non-tender Incision: normal, clean, dry, intact Extremities: non-tender - Assessment Assessment: Primary C/S - Plan Plan: routine care, discharge home, continue PNV
[2017-10-05] MEDS: DOCUSATE CALCIUM 240 MG CAPSULE PO SCH (13:10)
[2017-10-05 13:26] VITALS: BP 114/62; PULSE 67; TEMP 97.5; O2SAT 98
== END 2017-10-05 16:20 | disposition home or self-care (01) | DRG 766 ==
LOC: MC
PROVIDERS: ADMIT Obstetrics & Gynecology; ATTEND Obstetrics & Gynecology